=== PATIENT | female | born 1965 | race Caucasian/White ===

== ENCOUNTER 2018-03-18 23:51 | Emergency (ER) | payer SELFPAY ==
--- NOTE | 2018-03-19 00:42 | ERPHSYRPT ---
- History of Present Illness Time Seen by Provider: 03/19/18 00:31 Source: patient, EMS Exam Limitations: no limitations Patient Subjective Stated Complaint: Cough/hemoptysis Triage Nursing Assessment: Patient brought into ED per EMS and transferred to bed. Patient A+OX 3. Patient complains of cough producing thick green mucus then starting having hemoptysis. Patient has dx of cystic fibrosis. O2 93% on 3 liters per n/c. Lungs noted to be diminished thoughout. Physician History: The patient is a 52-year-old female with her brought in by ambulance from home where she had severe blood when she was coughing. She has a history of cystic fibrosis. Over the past 20 years she has had 3 or 4 episodes of hemoptysis. This episode was by far the worse one she has ever had. She is short of breath. She sees Dr. Lees in [place] and has hand thermal cutter at [facility] in [place]. She states that she has always been treated in [place] because of the significant antibiotic resistance that she has. Her past medical history is significant for cystic fibrosis, pancreatic cystic fibrosis induced diabetes, and hypothyroidism. Timing/Duration: today Cough Quality/Degree: severe, blood streaked sputum (antony blood) Possible Cause: occasional episodes, illness exposure Modifying Factors: Improves With: coughing Associated Symptoms: cough Allergies/Adverse Reactions: Penicillins Adverse Reaction (Verified 03/19/18 00:08) piperacillin [From Zosyn] Adverse Reaction (Verified 03/19/18 00:08) sulfamethoxazole [From Bactrim] Adverse Reaction (Verified 03/19/18 00:08) tazobactam [From Zosyn] Adverse Reaction (Verified 03/19/18 00:08) trimethoprim [From Bactrim] Adverse Reaction (Verified 03/19/18 00:08) Hx Influenza Vaccination/Date Given: Yes Hx Pneumococcal Vaccination/Date Given: Yes Immunizations Up to Date: Yes - Review of Systems Constitutional: No Fever, No Chills Eyes: No Symptoms Ears, Nose, & Throat: No Symptoms Respiratory: Cough, Dyspnea on Exertion (PRINCE) Cardiac: No Chest Pain, No Edema, No Syncope Abdominal/Gastrointestinal: No Abdominal Pain, No Nausea, No Vomiting, No Diarrhea Genitourinary Symptoms: No Dysuria Musculoskeletal: No Back Pain, No Neck Pain Skin: No Rash Neurological: No Dizziness, No Focal Weakness, No Sensory Changes Psychological: No Symptoms Endocrine: No Symptoms Hematologic/Lymphatic: No Symptoms Immunological/Allergic: No Symptoms All Other Systems: Reviewed and Negative - Past Medical History Pertinent Past Medical History: Yes Neurological History: No Pertinent History ENT History: No Pertinent History Cardiac History: No Pertinent History Respiratory History: Other Endocrine Medical History: Other Musculoskeletal History: No Pertinent History GI Medical History: No Pertinent History History: No Pertinent History Psycho-Social History: No Pertinent History Female Reproductive Disorders: No Pertinent History Other Medical History: Cystic Fibrosis since . Cystic Fibrosis related Diabetes for 20 years - Past Surgical History Past Surgical History: Yes Gastrointestinal: Cholecystectomy Genitourinary: No Pertinent History Musculoskeletal: No Pertinent History Female Surgical History: No Pertinent History Other Surgical History: Polp removed from large intestine 2014. Polp removed from sinus 1980s - Social History Smoking Status: Never smoker Exposure to second hand smoke: No Drug Use: none Patient Lives Alone: No - Female History Hx Last Menstrual Period: Menopausal Hx Now: No - Nursing Vital Signs Nursing Vital Signs: Initial Vital Signs Temperature 99.0 F 03/18/18 23:57 Pulse Rate 105 H 03/18/18 23:57 Respiratory Rate 18 03/18/18 23:57 Blood Pressure 124/82 03/18/18 23:57 O2 Sat by Pulse Oximetry 94 L 03/18/18 23:57 Pain Scale Pain Intensity 0 - Physical Exam General Appearance: no apparent distress, alert Eye Exam: PERRL/EOMI, eyes nml inspection Ears, Nose, Throat Exam: normal ENT inspection, TMs normal, pharynx normal, moist mucous membranes Neck Exam: normal inspection, non-tender, supple, full range of motion Respiratory Exam: rhonchi Cardiovascular Exam: regular rate/rhythm, normal heart sounds Gastrointestinal/Abdomen Exam: soft, No tenderness Pelvic Exam: not done Rectal Exam: not done Back Exam: normal inspection, No CVA tenderness, No vertebral tenderness Extremity Exam: normal inspection, normal range of motion Neurologic Exam: alert, oriented x 3, cooperative, normal mood/affect, sensation nml, No motor deficits Skin Exam: normal color, warm, dry, No rash Lymphatic Exam: No adenopathy SpO2 Interpretation: normal SpO2: 94 O2 Delivery: Nasal Cannula (2 L) - CT Exams Chest CT Interpretation: Tele-radiologist Report (per Dr Covington), Other (chronic changes of cystic fibrosis. no difinite acue pneumonia) Ordered Tests: Active Orders 24 hr Category Date Time Status IV Insertion STAT Care 03/19/18 00:45 Active Oxygen-ED Only Nasal Cannula 2 lpm Care 03/19/18 00:45 Active Pulse Oximetry (ED) STAT Care 03/19/18 00:45 Active CHEST WITHOUT CONTRAST [CT] Stat Exams 03/19/18 00:46 Taken BLOOD CULTURE Stat Lab 03/19/18 01:15 Received BMP Stat Lab 03/19/18 01:05 Completed CBC W DIFF Stat Lab 03/19/18 01:05 Completed Lactic Acid Stat Lab 03/19/18 01:19 Completed Medication Summary Generic Name Dose Route Start Last Admin Trade Name Freq PRN Reason Stop Dose Admin Sodium Chloride 1,000 mls @ 100 mls/hr 03/19/18 00:45 03/19/18 01:45 Sodium Chloride 0.9% 1000 Ml IV 04/18/18 00:44 100 mls/hr .Q10H GALEN Administration Lab/Rad Data: Laboratory Result Diagrams 03/19/18 01:05 03/19/18 01:05 Laboratory Results 03/19/18 03/19/18 03/19/18 Range/Units 01:19 01:15 01:05 WBC (4.0-10.5) K/mm3 RBC (4.1-5.4) M/mm3 Hgb (12.0-16.0) gm/dl Hct (35-47) % MCV (78-100) fl MCH (26-32) pg MCHC (32-36) g/dl RDW (11.5-14.0) % Plt Count (150-450) K/mm3 MPV (6-9.5) fl Gran % (36.0-66.0) % Eos # (Auto) (0-0.5) Absolute Lymphs (auto) (1.0-4.6) Absolute Monos (auto) (0.0-1.3) Lymphocytes % (24.0-44.0) % Monocytes % (0.0-12.0) % Eosinophils % (0.00-5.0) % Basophils % (0.0-0.4) % Absolute Granulocytes (1.4-6.9) Basophils # (0-0.4) Sodium 133 L (137-145) mmol/L Potassium 4.5 (3.5-5.1) mmol/L Chloride 93 L (98-107) mmol/L Carbon Dioxide 30 (22-30) mmol/L Anion Gap 13.7 (5-15) MEQ/L BUN 21 H (7-17) mg/dL Creatinine 0.81 (0.52-1.04) mg/dL Estimated GFR > 60.0 ML/MIN Glucose 396 H (74-106) mg/dL Lactic Acid 1.6 (0.4-2.0) Calcium 8.6 (8.4-10.2) mg/dL Influenza Type A Ag NEGATIVE (NEGATIVE) Influenza Type B Ag NEGATIVE (NEGATIVE) RSV (PCR) NEGATIVE (Negative) 03/19/18 Range/Units 01:05 WBC 9.3 (4.0-10.5) K/mm3 RBC 4.76 (4.1-5.4) M/mm3 Hgb 13.4 (12.0-16.0) gm/dl Hct 41.9 (35-47) % MCV 88.0 (78-100) fl MCH 28.2 (26-32) pg MCHC 32.0 (32-36) g/dl RDW 14.1 H (11.5-14.0) % Plt Count 270 (150-450) K/mm3 MPV 9.5 (6-9.5) fl Gran % 75.3 H (36.0-66.0) % Eos # (Auto) 0.10 (0-0.5) Absolute Lymphs (auto) 1.10 (1.0-4.6) Absolute Monos (auto) 1.04 (0.0-1.3) Lymphocytes % 11.9 L (24.0-44.0) % Monocytes % 11.2 (0.0-12.0) % Eosinophils % 1.1 (0.00-5.0) % Basophils % 0.5 (0.0-0.4) % Absolute Granulocytes 6.98 H (1.4-6.9) Basophils # 0.05 (0-0.4) Sodium (137-145) mmol/L Potassium (3.5-5.1) mmol/L Chloride (98-107) mmol/L Carbon Dioxide (22-30) mmol/L Anion Gap (5-15) MEQ/L BUN (7-17) mg/dL Creatinine (0.52-1.04) mg/dL Estimated GFR ML/MIN Glucose (74-106) mg/dL Lactic Acid (0.4-2.0) Calcium (8.4-10.2) mg/dL Influenza Type A Ag (NEGATIVE) Influenza Type B Ag (NEGATIVE) RSV (PCR) (Negative) - Progress Progress: improved Air Movement: fair Progress Note: 03/19/18 03:[address] Donohue the hand thermal cutter at [facility] in [place]. We will hold off on giving the patient antibiotics at this time. We will transfer the patient soon as a bed becomes available. We will send a sputum specimen with the patient. Blood Culture(s) Obtained: Yes Antibiotics given: No Discussed with Dr.: Other (Dr Donohue at [facility]) Counseled pt/family regarding: lab results, rad results - Departure Time of Disposition: 03:01 Departure Disposition: Transfer (Transfer to [facility] per Dr Donohue) Clinical Impression: Hemoptysis, Cystic fibrosis Condition: Stable Critical Care Time: No Referrals: RODRIGUEZ LEES [Primary Care Provider] -
[2018-03-19] MEDS ORDERED: Sodium Chloride 0.9% 1000 ML 1,000 ML IV SCH (00:45)
[2018-03-19] MEDS ORDERED: Sodium Chloride 0.9% 1000 ML 1,000 ML ONE (01:13)
[2018-03-19 01:25] LABS: BASOPHIL % 0.5 % (0.0-0.4); Basophil (Absolute #) 0.05 (0-0.4); Eosinophil % 1.1 % (0.00-5.0); Granulocytes % 75.3 % (36.0-66.0); Hematocrit 41.9 % (35-47); Hemoglobin 13.4 gm/dl (12.0-16.0); Lymphocytes % 11.9 % (24.0-44.0); Mean Corpuscular Hemoglobin 28.2 pg (26-32); Mean Platelet Volume 9.5 fl (6-9.5); Monocyte (Absolute #) 1.04 (0.0-1.3); Monocytes % 11.2 % (0.0-12.0); Platelet Count 270 K/mm3 (150-450); Red Blood Count 4.76 M/mm3 (4.1-5.4); Red Cell Distribution Width 14.1 % (11.5-14.0); White Blood Count 9.3 K/mm3 (4.0-10.5)
[2018-03-19 01:37] LABS: ANION GAP 13.7 MEQ/L (5-15); BLOOD UREA NITROGEN 21 mg/dL (7-17); CHLORIDE 93 mmol/L (98-107); Calcium 8.6 mg/dL (8.4-10.2); Carbon Dioxide 30 mmol/L (22-30); Creatinine 1 0.81 mg/dL (0.52-1.04); Glucose 396 mg/dL (74-106); Potassium 4.5 mmol/L (3.5-5.1); SODIUM 133 mmol/L (137-145)
[2018-03-19 02:12] LABS: INFLUENZA A NEGATIVE (NEGATIVE); INFLUENZA B NEGATIVE (NEGATIVE); RESPIRATORY SYNCTIAL VIRUS NEGATIVE (Negative)
[2018-03-19] MEDS ORDERED: PROVENTIL 2.5 MG/3 ML NEB IH ONE ×2 (03:15→03:20)
[2018-03-19 03:33] VITALS: BP 114/62
[2018-03-19 03:59] VITALS: PULSE 96; O2SAT 95
--- NOTE | 2018-03-19 09:37 | XRAY ---
Indication: Hemoptysis and dyspnea. Cystic fibrosis. Multiple contiguous axial images obtained through the chest without contrast as ordered. Comparison: None. Lungs inflated with CT findings consistent with patient's history of cystic fibrosis. Right upper lobe demonstrates asymmetric consolidation concerning for organizing airspace disease. Additional smaller patchy areas of airspace disease seen throughout both lungs. No effusion. Heart is not enlarged. Aorta is normal in course and caliber. A few mediastinal lymph nodes, largest subcarinal measuring 1.5 x 1.7 cm. Bony thorax intact with minimal degenerative changes throughout the spine. Limited upper abdomen demonstrates previous cholecystectomy. Impression: 1. Cystic fibrosis consistent with patient's history. 2. Scattered patchy bilateral airspace disease with asymmetric right upper lobe consolidation. Correlate clinically. 3. Mediastinal lymph nodes presumed reactive. Comment: Preliminary interpretation was made by [facility] [[email or web address]] who does not report airspace opacities including right upper lobe consolidation and subcarinal node. Telephone report given to Dr. Padron in the ER at 0924 hrs. on March 19, 2018. CTDI 7.36
== END 2018-03-19 05:01 | disposition short-term general hospital (02) ==
LOC: ED 23:51
DX: R04.2 Hemoptysis (principal); E84.9 Cystic fibrosis, unspecified; Z86.010 Personal history of colon polyps; E11.9 Type 2 diabetes mellitus without complications
CPT/HCPCS: 36415; 71250; 80048; 82962; 83605; 85025; 87040; 87077; 87631; 94150; 94640; 96360; 96361; 99285; J7609; A9270-GY

== ENCOUNTER 2018-06-19 22:21 | Emergency (ER) | payer BC ==
[2018-06-19] MEDS ORDERED: DUONEB 0.5-3 MG/3 ml Neb IH ONE ×2 (22:51→23:00)
[2018-06-19] MEDS ORDERED: TYLENOL 325 MG PO ONE (22:55)
[2018-06-19] MEDS ORDERED: LEVOFLOXACIN 750MG/150ML D5W 750 MG/150 ML BAG IV STA (22:55)
[2018-06-19] MEDS ORDERED: Zofran 4 MG/2 ML VIAL IV ONE (22:55)
[2018-06-19] MEDS ORDERED: Merrem 1 GM 1 G in Sodium Chloride 100ML MINI-BAG PLUS 100 ML IV STA (23:00)
[2018-06-19] MEDS ORDERED: Vancomycin 1GM/ Ns 250ML*** 1 GM/250 ML IVPB IV ONE (23:00)
[2018-06-19] MEDS ORDERED: Zofran 4 MG/2 ML VIAL ONE (23:02)
[2018-06-19] MEDS ORDERED: TYLENOL 325 MG ONE (23:02)
[2018-06-19] MEDS ORDERED: LEVOFLOXACIN 750MG/150ML D5W 750 MG/150 ML BAG IV ONE (23:03)
[2018-06-19] MEDS ORDERED: Merrem 1 GM IV ONE ×2 (23:11→23:12)
[2018-06-19] MEDS ORDERED: Sodium Chloride 0.9% 100 ML IVPB 100 ML IV ONE (23:12)
[2018-06-19 23:21] LABS: BASOPHIL % 0.8 % (0.0-0.4); Basophil (Absolute #) 0.06 (0-0.4); Eosinophil % 0.4 % (0.00-5.0); Eosinophil (Absolute #) 0.03 (0-0.5); Granulocyte Absolute (ANC) 5.73 (1.4-6.9); Granulocytes % 71.6 % (36.0-66.0); Hematocrit 41.5 % (35-47); Hemoglobin 13.3 gm/dl (12.0-16.0); Lymphocyte (Absolute #) 0.77 (1.0-4.6); Lymphocytes % 9.6 % (24.0-44.0); Mean Cell Volume 87.4 fl (78-100); Mean Platelet Volume 9.9 fl (6-9.5); Monocyte (Absolute #) 1.41 (0.0-1.3); Monocytes % 17.6 % (0.0-12.0); Platelet Count 271 K/mm3 (150-450); Red Blood Count 4.75 M/mm3 (4.1-5.4); Red Cell Distribution Width 14.2 % (11.5-14.0)
[2018-06-19 23:35] LABS: ALBUMIN 3.8 g/dL (3.5-5.0); ALKALINE PHOSPHATASE 111 U/L (38-126); ANION GAP 14.7 MEQ/L (5-15); BLOOD UREA NITROGEN 10 mg/dL (7-17); CHLORIDE 98 mmol/L (98-107); Calcium 8.9 mg/dL (8.4-10.2); Carbon Dioxide 26 mmol/L (22-30); Creatinine 1 0.65 mg/dL (0.52-1.04); Glucose 309 mg/dL (74-106); Potassium 4.3 mmol/L (3.5-5.1); SGOT/AST 26 U/L (14-36); SGPT/ALT 26 U/L (0-35); SODIUM 135 mmol/L (137-145); Total Protein 7.6 g/dL (6.3-8.2)
[2018-06-19] MEDS ORDERED: NovoLOG Insulin SQ ONE (23:41)
[2018-06-19 23:57] LABS: INFLUENZA A NEGATIVE (NEGATIVE); INFLUENZA B NEGATIVE (NEGATIVE); RESPIRATORY SYNCTIAL VIRUS NEGATIVE (Negative)
[2018-06-20] MEDS ORDERED: NovoLOG Insulin ONE (00:19)
[2018-06-20] MEDS ORDERED: DUONEB 0.5-3 MG/3 ml Neb IH ONE ×2 (00:39→00:44)
[2018-06-20 00:50] VITALS: O2SAT 93
[2018-06-20] MEDS ORDERED: Vancomycin 1GM/ Ns 250ML*** 250 ML IV ONE (01:15)
[2018-06-20 01:24] VITALS: BP 95/69; PULSE 105
--- NOTE | 2018-06-20 01:46 | ERPHSYRPT ---
- History of Present Illness Source: patient Exam Limitations: no limitations Patient Subjective Stated Complaint: pt is alert and oriented. pt is ambulatory with a steady gait. pt comes in with c/o fever, congestion, headache, and difficulty breathing since wednesday. pt has cystic fibrosis. pt denies coughing anything up. pt does have a productive cough producing green sputum. pt denies hemoptysis. pt lung sound are coarse and crackling bilat bases and middle. pt heart sounds regular. pt is 89% on RA. pt placed on 2L NC and is now up to 93%. pt denies belly pain. bowel sounds normoactive x4. pt placed on neutropenic precautions. Triage Nursing Assessment: see above Physician History: Pt is a 52 y/o female with a h/o CF that presented to the ED with cough, SOB, dyspnea, and fever. Pt states, the fever and cough started on Wednesday and escalated fast. Pt states, she is taking her meds as ordered, and her nebs, but she did get worse, fast and could not breath. Pt has cough with green sputum that is slmost solid. She is febrile, and having chills, and sweats. No chest pain or palpitations. She is getting nauseated, with sever cough spells. No abdominal pain vomiting or diarrhea. Activities at Onset: none Severity of Dyspnea-Max: severe Severity of Dyspnea-Current: severe Possible Cause: frequent episodes Modifying Factors: Improves With: nothing Associated Symptoms: cough, fever, wheezing, heart racing, painful breathing, productive cough, sweating Allergies/Adverse Reactions: Penicillins Adverse Reaction (Verified 03/19/18 00:08) piperacillin [From Zosyn] Adverse Reaction (Verified 03/19/18 00:08) sulfamethoxazole [From Bactrim] Adverse Reaction (Verified 03/19/18 00:08) tazobactam [From Zosyn] Adverse Reaction (Verified 03/19/18 00:08) trimethoprim [From Bactrim] Adverse Reaction (Verified 03/19/18 00:08) Home Medications: Albuterol 2.5 mg/3 ml Neb [Proventil 2.5 mg/3 ml Neb] 1 vial IH TID [History] Albuterol Sulfate [Albuterol Sulfate Hfa] 8.5 gm IH Q4HPRN PRN 03/19/18 [History ] Atorvastatin Calcium 10 mg PO HS 03/19/18 [History] Azithromycin 500 mg PO WEEKLY 03/19/18 [History] Escitalopram Oxalate [Lexapro] 20 mg PO DAILY 03/19/18 [History] Fluticasone/Salmeterol 500/50* [Advair 500-50 Diskus] 2 sprays IH DAILY 03/19 [History] Insulin Aspart [NovoLOG Insulin] 12 unit SQ AC 03/19/18 [History] Insulin Glargine [Lantus Insulin] 16 units SQ DAILY 03/19/18 [History] Levothyroxine Sodium 50 Mcg [Synthroid 50 Mcg] 1 tab PO DAILY PRN [History] Lipase/Protease/Amylase [Zenpep Dr 20,000 Units Capsule] 2 each PO AC 03/19/18 [ History] Omeprazole 20 mg PO DAILY 03/19/18 [History] Hx Tetanus, Diphtheria Vaccination/Date Given: Yes Hx Influenza Vaccination/Date Given: Yes Hx Pneumococcal Vaccination/Date Given: Yes Immunizations Up to Date: Yes - Review of Systems Constitutional: Fever, Chills, Malaise Eyes: No Symptoms Ears, Nose, & Throat: No Symptoms Respiratory: Cough, Dyspnea, Dyspnea on Exertion (PRINCE), Wheezing Cardiac: No Chest Pain, No Edema, No Syncope Abdominal/Gastrointestinal: No Abdominal Pain, No Nausea, No Vomiting, No Diarrhea Genitourinary Symptoms: No Dysuria Musculoskeletal: No Back Pain, No Neck Pain Neurological: No Dizziness, No Focal Weakness, No Sensory Changes Psychological: No Symptoms - Past Medical History Pertinent Past Medical History: Yes Neurological History: No Pertinent History ENT History: No Pertinent History Cardiac History: No Pertinent History, High Cholesterol Respiratory History: Other Endocrine Medical History: Diabetes Type II, Hypoglycemia Musculoskeletal History: Arthritis GI Medical History: No Pertinent History History: No Pertinent History Psycho-Social History: No Pertinent History Female Reproductive Disorders: No Pertinent History Other Medical History: Cystic Fibrosis since . Cystic Fibrosis related Diabetes for 20 years - Past Surgical History Past Surgical History: Yes Neuro Surgical History: No Pertinent History Cardiac: No Pertinent History Respiratory: No Pertinent History Gastrointestinal: Cholecystectomy Genitourinary: No Pertinent History Musculoskeletal: No Pertinent History Female Surgical History: No Pertinent History Other Surgical History: Polp removed from large intestine 2014. Polp removed from sinus 1980s - Social History Smoking Status: Never smoker Exposure to second hand smoke: No Drug Use: none Patient Lives Alone: No - Female History Hx Now: No - Nursing Vital Signs Nursing Vital Signs: Initial Vital Signs Temperature 102.4 F 06/19/18 22:27 Pulse Rate 125 H 06/19/18 22:27 Respiratory Rate 20 06/19/18 22:27 Blood Pressure 137/79 06/19/18 22:27 O2 Sat by Pulse Oximetry 91 L 06/19/18 22:27 Pain Scale Pain Intensity 6 - Physical Exam General Appearance: severe distress Eye Exam: PERRL/EOMI Neck Exam: normal inspection, supple Respiratory Exam: respiratory distress, accessory muscle use, prolonged expirations, wheezing Cardiovascular/Chest Exam: normal heart sounds, tachycardia Abdominal/Gastrointestinal Exam: soft, No tenderness, No distention, No mass Extremity Exam: non-tender, normal range of motion, normal inspection, no calf tenderness, no pedal edema, No calf tenderness Neurologic Exam: alert, oriented x 3, cooperative, project management it specialist II-XII nml as tested, sensation nml, No motor deficits Skin Exam: normal color, warm, No dry SpO2 Interpretation: hypoxic SpO2: 93 - Radiology Exams Chest X-ray Interpretation: Interpreted by me (PAYAL PNA) Ordered Tests: Active Orders 24 hr Category Date Time Status Oxygen-ED Only Nasal Cannula 2 lpm Care 06/19/18 22:55 Active CHEST 1 VIEW (PORTABLE) Stat Exams 06/19/18 23:24 Taken ARTERIAL BLOOD GASES Stat Lab 06/19/18 23:15 Completed BLOOD CULTURE Stat Lab 06/19/18 23:17 Received CBC W DIFF Stat Lab 06/19/18 23:17 Completed CMP Stat Lab 06/19/18 23:17 Completed CULTURE,SPUTUM Stat Lab 06/19/18 23:39 Received CULTURE,URINE Stat Lab 06/19/18 22:58 Uncollected Lactic Acid Stat Lab 06/19/18 23:15 Completed Peak Expiratory Flow Rate ONCE RT 06/19/18 23:13 Active Respiratory Nebulizer STAT RT 06/19/18 22:51 Completed Respiratory Nebulizer STAT RT 06/20/18 00:39 Completed Respiratory Therapy Assessment DAILY RT 06/19/18 23:13 Active Medication Summary Discontinued Medications Generic Name Dose Route Start Last Admin Trade Name Freq PRN Reason Stop Dose Admin Acetaminophen 975 mg 06/19/18 22:55 06/19/18 23:04 Tylenol 325 Mg PO 06/19/18 22:56 975 mg STAT ONE Administration Acetaminophen Confirm 06/19/18 23:02 Tylenol 325 Mg Administered 06/19/18 23:03 Dose 975 mg .ROUTE .STK-MED ONE Albuterol/Ipratropium 3 ml 06/19/18 22:51 06/19/18 23:05 Duoneb 0.5-3 Mg/3 Ml Neb IH 06/19/18 22:52 3 ml STAT ONE Administration Albuterol/Ipratropium Confirm 06/19/18 23:00 Duoneb 0.5-3 Mg/3 Ml Neb Administered 06/19/18 23:01 Dose 3 ml IH .STK-MED ONE Albuterol/Ipratropium 3 ml 06/20/18 00:39 06/20/18 00:45 Duoneb 0.5-3 Mg/3 Ml Neb IH 06/20/18 00:40 3 ml STAT ONE Administration Albuterol/Ipratropium Confirm 06/20/18 00:44 Duoneb 0.5-3 Mg/3 Ml Neb Administered 06/20/18 00:45 Dose 3 ml IH .STK-MED ONE Levofloxacin/Dextrose 750 mg in 150 mls @ 100 mls/hr 06/19/18 22:55 06/20/18 01:27 Levofloxacin 750mg/150ml D5w IV 06/20/18 00:24 Infused STAT STA Infusion Meropenem 1 g/ Sodium Chloride 100 mls @ 200 mls/hr 06/19/18 23:00 06/20/18 00:00 IV 06/19/18 23:29 Infused STAT STA Infusion Vancomycin HCl 1 gm in 250 mls @ 167 mls/hr 06/19/18 23:00 06/20/18 01:27 Vancomycin 1gm/ Ns 250ml IV 06/20/18 00:29 167 mls/hr STAT ONE Administration Levofloxacin/Dextrose Confirm 06/19/18 23:03 Levofloxacin 750mg/150ml D5w Administered 06/19/18 23:04 Dose 750 mg in 150 mls @ ud IV .STK-MED ONE Sodium Chloride Confirm 06/19/18 23:12 Sodium Chloride 0.9% 100 Ml Ivpb Administered 06/19/18 23:13 Dose 100 mls @ ud IV .STK-MED ONE Vancomycin HCl Confirm 06/20/18 01:15 Vancomycin 1gm/ Ns 250ml Administered 06/20/18 01:16 Dose 250 mls @ ud IV .STK-MED ONE Insulin Aspart 8 unit 06/19/18 23:41 06/20/18 00:30 Novolog Insulin SQ 06/19/18 23:42 8 unit STAT ONE Administration Insulin Aspart Confirm 06/20/18 00:19 Novolog Insulin Administered 06/20/18 00:20 Dose 8 unit .ROUTE .STK-MED ONE Meropenem Confirm 06/19/18 23:11 Merrem 1 Gm Administered 06/19/18 23:12 Dose 1 g IV .STK-MED ONE Meropenem Confirm 06/19/18 23:12 Merrem 1 Gm Administered 06/19/18 23:13 Dose 1 g IV .STK-MED ONE Ondansetron HCl 4 mg 06/19/18 22:55 06/19/18 23:05 Zofran 4 Mg/2 Ml Vial IV 06/19/18 22:56 4 mg STAT ONE Administration Ondansetron HCl Confirm 06/19/18 23:02 Zofran 4 Mg/2 Ml Vial Administered 06/19/18 23:03 Dose 4 mg .ROUTE .STK-MED ONE Lab/Rad Data: Laboratory Result Diagrams 06/19/18 23:17 06/19/18 23:17 Laboratory Results 06/19/18 06/19/18 06/19/18 Range/Units 23:17 23:17 23:17 WBC 8.0 (4.0-10.5) K/mm3 RBC 4.75 (4.1-5.4) M/mm3 Hgb 13.3 (12.0-16.0) gm/dl Hct 41.5 (35-47) % MCV 87.4 (78-100) fl MCH 28.0 (26-32) pg MCHC 32.0 (32-36) g/dl RDW 14.2 H (11.5-14.0) % Plt Count 271 (150-450) K/mm3 MPV 9.9 H (6-9.5) fl Gran % 71.6 H (36.0-66.0) % Eos # (Auto) 0.03 (0-0.5) Absolute Lymphs (auto) 0.77 L (1.0-4.6) Absolute Monos (auto) 1.41 H (0.0-1.3) Lymphocytes % 9.6 L (24.0-44.0) % Monocytes % 17.6 H (0.0-12.0) % Eosinophils % 0.4 (0.00-5.0) % Basophils % 0.8 (0.0-0.4) % Absolute Granulocytes 5.73 (1.4-6.9) Basophils # 0.06 (0-0.4) Puncture Site pCO2 (35-45) mmHg pO2 (75-100) mmHg Base Excess (-2.0-2.0) O2 Saturation (94-100) g/dF ABG pH (7.35-7.45) ABG HCO3 (22-28) ABG O2 Sat (Measured) (95-100) % Cristo Test Hemoglobin Carboxyhemoglobin (0.0-6.9) % THgb Methemoglobin (1.4-1.5) % Potassium 4.3 (3.5-5.1) Temperature C POC O2 Flow Rate % Sodium 135 L (137-145) mmol/L Chloride 98 (98-107) mmol/L Carbon Dioxide 26 (22-30) mmol/L Anion Gap 14.7 (5-15) MEQ/L BUN 10 (7-17) mg/dL Creatinine 0.65 (0.52-1.04) mg/dL Estimated GFR > 60.0 ML/MIN Glucose 309 H (74-106) mg/dL Lactic Acid (0.4-2.0) Calcium 8.9 (8.4-10.2) mg/dL Total Bilirubin 0.50 (0.2-1.3) mg/dL AST 26 (14-36) U/L ALT 26 (0-35) U/L Alkaline Phosphatase 111 (38-126) U/L Serum Total Protein 7.6 (6.3-8.2) g/dL Albumin 3.8 (3.5-5.0) g/dL Influenza Type A Ag NEGATIVE (NEGATIVE) Influenza Type B Ag NEGATIVE (NEGATIVE) RSV (PCR) NEGATIVE (Negative) 06/19/18 Range/Units 23:15 WBC (4.0-10.5) K/mm3 RBC (4.1-5.4) M/mm3 Hgb (12.0-16.0) gm/dl Hct (35-47) % MCV (78-100) fl MCH (26-32) pg MCHC (32-36) g/dl RDW (11.5-14.0) % Plt Count (150-450) K/mm3 MPV (6-9.5) fl Gran % (36.0-66.0) % Eos # (Auto) (0-0.5) Absolute Lymphs (auto) (1.0-4.6) Absolute Monos (auto) (0.0-1.3) Lymphocytes % (24.0-44.0) % Monocytes % (0.0-12.0) % Eosinophils % (0.00-5.0) % Basophils % (0.0-0.4) % Absolute Granulocytes (1.4-6.9) Basophils # (0-0.4) Puncture Site NA pCO2 41 (35-45) mmHg pO2 38 L* (75-100) mmHg Base Excess 2.6 H (-2.0-2.0) O2 Saturation 79.3 L (94-100) g/dF ABG pH 7.43 (7.35-7.45) ABG HCO3 27.2 (22-28) ABG O2 Sat (Measured) 80.9 L (95-100) % Cristo Test NOT APPLICABLE Hemoglobin 14.2 Carboxyhemoglobin 1.6 (0.0-6.9) % THgb Methemoglobin 0.3 L (1.4-1.5) % Potassium 4.4 (3.5-5.1) Temperature 37.0 C POC O2 Flow Rate 28 % Sodium (137-145) mmol/L Chloride (98-107) mmol/L Carbon Dioxide (22-30) mmol/L Anion Gap (5-15) MEQ/L BUN (7-17) mg/dL Creatinine (0.52-1.04) mg/dL Estimated GFR ML/MIN Glucose (74-106) mg/dL Lactic Acid 2.0 (0.4-2.0) Calcium (8.4-10.2) mg/dL Total Bilirubin (0.2-1.3) mg/dL AST (14-36) U/L ALT (0-35) U/L Alkaline Phosphatase (38-126) U/L Serum Total Protein (6.3-8.2) g/dL Albumin (3.5-5.0) g/dL Influenza Type A Ag (NEGATIVE) Influenza Type B Ag (NEGATIVE) RSV (PCR) (Negative) - Progress Progress: unchanged Air Movement: poor Progress Note: 06/20/18 01:48 Pt had blood cultures and UA, and sputum cultures done. She was given Levaquin , Meopenem and Vancomycin IV. Nebs were given x2. transfer center was contacted and Dr Gorman accepted pt to PCU. Secondary to bed problem in [facility], the ER in [facility] was contacted and Dr Delarosa accepted pt to the ED in [place], and they will care for her, until bed will open in [place]. As lifeline, was not brandyn, and could not machine operator picker pt in the next 4 hours, Pt was transfered with out service. Blood Culture(s) Obtained: Yes Antibiotics given: Yes Will see patient in: other (Transfer to ED [place]) - Departure Departure Disposition: Transfer Clinical Impression: Hospital acquired PNA Condition: Serious Critical Care Time: No Referrals: RODRIGUEZ LEES [Primary Care Provider] -
--- NOTE | 2018-06-20 08:51 | XRAY ---
Indication: Short of breath. History cystic fibrosis. Comparison: None Portable chest hyperinflated with diffuse bilateral interstitial opacities and bronchiectasis greater in the upper lobes favoring known cystic fibrosis. No focal infiltrate, consolidation, or large effusion. Heart and mediastinal structures within normal limits. Bony thorax intact. Impression: Radiographic features favoring cystic fibrosis with superimposed pneumonia not completely excluded. Comparison studies would be of benefit.
== END 2018-06-20 01:38 | disposition short-term general hospital (02) ==
LOC: ED 22:21
DX: J18.9 Pneumonia, unspecified organism (principal); E78.00 Pure hypercholesterolemia, unspecified; E11.9 Type 2 diabetes mellitus without complications
CPT/HCPCS: 36415; 36600; 71045; 80053; 82375; 82803; 83605; 85025; 87040; 87070; 87077; 87186; 87631; 94150; 94640; 96365; 96367; 96372; 96374; 99285; J1956; J2405; J3370; A9270-GY

== ENCOUNTER 2018-11-10 20:32 | Emergency (ER) | payer BC ==
--- NOTE | 2018-11-10 21:01 | ERPHSYRPT ---
- History of Present Illness Time Seen by Provider: 11/10/18 20:45 Source: patient Exam Limitations: no limitations Patient Subjective Stated Complaint: pt states she has cf and coughed up approx 2 oz of blood prior to arrival. states she has been increasingluy short of breath since and her o2 sats on room air dropped from mid 90's to 89. Triage Nursing Assessment: pt alert and oriented, answers questions approp. pt back per wheelchair and transfers to stretcher per self, steady gait noted. pt short of breath with exertion. Physician History: Increased cough, dyspnea and production over the past two days after beginning with sore throat and upper respiratory symptoms. Patient had increased hemoptysis tonight. Timing/Duration: day(s) (2), worse (this evening) Cough Quality/Degree: moderate, blood streaked sputum Possible Cause: occasional episodes Modifying Factors: Improves With: coughing (makes it worse) Associated Symptoms: cough, nasal congestion, nasal drainage, shortness of breath, sore throat, No fever, No chills, No chest pain/soreness, No dizziness, No earache, No facial pain, No headache, No lightheadedness International travel in last 2 weeks: No Allergies/Adverse Reactions: Penicillins Adverse Reaction (Verified 11/10/18 21:04) piperacillin [From Zosyn] Adverse Reaction (Verified 11/10/18 21:04) sulfamethoxazole [From Bactrim] Adverse Reaction (Verified 11/10/18 21:04) tazobactam [From Zosyn] Adverse Reaction (Verified 11/10/18 21:04) trimethoprim [From Bactrim] Adverse Reaction (Verified 11/10/18 21:04) Home Medications: Albuterol 2.5 mg/3 ml Neb [Proventil 2.5 mg/3 ml Neb] 1 vial IH TID [History] Albuterol Sulfate [Albuterol Sulfate Hfa] 8.5 gm IH Q4HPRN PRN 03/19/18 [History ] Atorvastatin Calcium 10 mg PO HS 03/19/18 [History] Azithromycin 500 mg PO UD 03/19/18 [History] Escitalopram Oxalate [Lexapro] 20 mg PO DAILY 03/19/18 [History] Fluticasone/Salmeterol 500/50* [Advair 500-50 Diskus] 1 sprays IH BID [History] Insulin Aspart [NovoLOG Insulin] 12 unit SQ AC 03/19/18 [History] Insulin Glargine [Lantus Insulin] 13 units SQ DAILY 03/19/18 [History] Levothyroxine Sodium 50 Mcg [Synthroid 50 Mcg] 1 tab PO DAILY 03/19/18 [ History] Lipase/Protease/Amylase [Zenpep Dr 20,000 Units Capsule] 2 each PO AC 03/19/18 [ History] Omeprazole 20 mg PO DAILY 03/19/18 [History] Hx Tetanus, Diphtheria Vaccination/Date Given: Yes Hx Influenza Vaccination/Date Given: No Hx Pneumococcal Vaccination/Date Given: Yes Immunizations Up to Date: Yes - Review of Systems Constitutional: No Fever, No Chills Eyes: No Symptoms, No Eye Pain, No Vision Changes Ears, Nose, & Throat: No Symptoms Respiratory: Cough, Dyspnea, Other (hemoptysis) Cardiac: No Chest Pain, No Edema, No Syncope Abdominal/Gastrointestinal: No Abdominal Pain, No Nausea, No Vomiting, No Diarrhea, No Hematemesis, No Hematochezia, No Melena Genitourinary Symptoms: No Dysuria Musculoskeletal: No Back Pain, No Neck Pain Skin: No Rash Neurological: No Dizziness, No Focal Weakness, No Parasthesia, No Sensory Changes, No Tremors Psychological: No Symptoms Endocrine: No Symptoms Hematologic/Lymphatic: No Easy Bleeding, No Easy Bruising All Other Systems: Reviewed and Negative - Past Medical History Pertinent Past Medical History: Yes Neurological History: No Pertinent History ENT History: No Pertinent History Cardiac History: No Pertinent History, High Cholesterol Respiratory History: Other Endocrine Medical History: Diabetes Type II, Hypothyroidism Musculoskeletal History: Arthritis GI Medical History: No Pertinent History History: No Pertinent History Psycho-Social History: No Pertinent History Female Reproductive Disorders: No Pertinent History Other Medical History: Cystic Fibrosis since . Cystic Fibrosis related Diabetes for 20 years - Past Surgical History Past Surgical History: Yes Neuro Surgical History: No Pertinent History Cardiac: No Pertinent History Respiratory: No Pertinent History Gastrointestinal: Cholecystectomy Genitourinary: No Pertinent History Musculoskeletal: No Pertinent History Female Surgical History: No Pertinent History Other Surgical History: Polyp removed from large intestine 2014. Polyp removed from sinus 1980s - Social History Smoking Status: Never smoker Exposure to second hand smoke: No Drug Use: none Patient Lives Alone: No - Female History Hx Last Menstrual Period: post - Nursing Vital Signs Nursing Vital Signs: Initial Vital Signs Temperature 100.1 F 11/10/18 20:42 Pulse Rate 100 H 11/10/18 20:42 Respiratory Rate 22 11/10/18 20:42 Blood Pressure 139/81 11/10/18 20:42 O2 Sat by Pulse Oximetry 97 11/10/18 20:42 Pain Scale Pain Intensity 0 - Physical Exam General Appearance: no apparent distress, alert Eye Exam: PERRL/EOMI, eyes nml inspection Ears, Nose, Throat Exam: normal ENT inspection, TMs normal, pharynx normal, moist mucous membranes Neck Exam: normal inspection, non-tender, supple, full range of motion Respiratory Exam: airway intact, No respiratory distress Cardiovascular Exam: regular rate/rhythm, normal heart sounds, normal peripheral pulses Gastrointestinal/Abdomen Exam: soft, No tenderness Back Exam: normal inspection, No CVA tenderness, No vertebral tenderness Extremity Exam: normal inspection, normal range of motion Neurologic Exam: alert, oriented x 3, cooperative, clinical psychology teacher II-XII nml as tested, normal mood/affect, sensation nml, No motor deficits Skin Exam: normal color, warm, dry, No rash Lymphatic Exam: No adenopathy SpO2 Interpretation: borderline oxygenation, O2 applied SpO2: 97 (improved after nasal cannula) O2 Delivery: Nasal Cannula - Course Nursing assessment & vital signs reviewed: Yes Ordered Tests: Active Orders 24 hr Category Date Time Status Respiratory Therapy Assessment DAILY RT 11/10/18 22:04 Completed Medication Summary Discontinued Medications Generic Name Dose Route Start Last Admin Trade Name Twyla PRN Reason Stop Dose Admin Sodium Chloride 3 ml 11/10/18 21:53 11/10/18 22:07 Sodium Chloride 3 Ml Ud Nebules IH 11/10/18 21:54 3 ml ONCE ONE Administration Sodium Chloride Confirm 11/10/18 22:03 Sodium Chloride 3 Ml Ud Nebules Administered 11/10/18 22:04 Dose 3 ml IH .STK-MED ONE - Progress Progress: improved (after 2 liters oxygen) Air Movement: good Progress Note: 11/10/18 20:55 [facility] in [place], [place] called. They will call back with patient' s line therapist 11/10/18 21:[address] Roberth Smart, [employer] at [facility] in [place], [place]. Dr Smart accepted the patient for transfer and admission on behalf of Dr Tamia Lynch. Dr Smart recommended Saline Nebs and Pulmozyme if we have it. Dr Smart states nothing else needs to be done at this time as they will do further work-up at the hospital. 11/10/18 22:28 Patient felt better after the Saline nebulizer treatment 11/10/18 22:33 transfer center states no beds are available this evening. Patient can be transferred to [facility], [facility], in [place], [place] for admission until a bed opens up. 11/10/18 22:[address] Doss, ED attending at [facility] in [place], [place]. Dr Doss accepted the patient for transfer to [facility] emergency department. Blood Culture(s) Obtained: No Antibiotics given: No Discussed with Dr.: Other (spoke with Dr Roberth Smart, [employer]ator at [facility] in [place], [place]. Dr Smart accepted the patient for admission) Will see patient in: hospital (full admit) Counseled pt/family regarding: diagnosis, need for follow-up - Departure Departure Disposition: Transfer ([facility] in [place], [place]) Clinical Impression: Hemoptysis, Cystic fibrosis, Elevated blood pressure reading without diagnosis of hypertension Condition: Fair Critical Care Time: No Referrals: RODRIGUEZ LEES [Primary Care Provider] -
[2018-11-10] MEDS ORDERED: Sodium Chloride 3 ML UD NEBULES IH ONE ×2 (21:53→22:03)
[2018-11-10] MEDS ORDERED: TYLENOL EXTRA STRENGTH 500 MG PO STA (22:45)
[2018-11-10] MEDS ORDERED: TYLENOL EXTRA STRENGTH 500 MG ONE (22:56)
[2018-11-11 02:54] VITALS: BP 124/63; PULSE 71; O2SAT 96
== END 2018-11-11 02:30 | disposition short-term general hospital (02) ==
LOC: ED 20:32
DX: R04.2 Hemoptysis (principal); E84.9 Cystic fibrosis, unspecified; R03.0 Elevated blood-pressure reading, without diagnosis of hypertension
CPT/HCPCS: 99284; A9270-GY

== ENCOUNTER 2019-02-04 01:22 | Emergency (ER) | payer BC ==
--- NOTE | 2019-02-04 01:30 | ERPHSYRPT ---
- History of Present Illness Source: patient Exam Limitations: no limitations Occurred: yesterday Method of Injury: other (no injury) Quality: other (swollen ruext) Severity of Pain-Max: none Severity of Pain-Current: none Extremities Pain Location: arm: right Modifying Factors: Improves With: nothing Associated Symptoms: none Hx Tetanus, Diphtheria Vaccination/Date Given: Yes Hx Influenza Vaccination/Date Given: No Hx Pneumococcal Vaccination/Date Given: Yes <IGNACIO MESA - Last Filed: 02/04/19 06:50> <JAMES MONTEMAYOR - Last Filed: 02/04/19 08:56> - History of Present Illness Time Seen by Provider: 02/04/19 01:29 Physician History: 53 y/o white female, with h/o cystic fibrosis, presents with right arm swelling she noticed yesterday. pt also had an episode of hemoptysis. she has had this in the past. pts soa is no different than usual. pt had a right subclavian v subq port placed one month ago. pt states it is flushed with heparin after use. pt denies cp. (IGNACIO MESA) Allergies/Adverse Reactions: polymyxin B Allergy (Verified 02/04/19 01:43) Penicillins Adverse Reaction (Verified 11/10/18 21:04) piperacillin [From Zosyn] Adverse Reaction (Verified 11/10/18 21:04) sulfamethoxazole [From Bactrim] Adverse Reaction (Verified 11/10/18 21:04) tazobactam [From Zosyn] Adverse Reaction (Verified 11/10/18 21:04) trimethoprim [From Bactrim] Adverse Reaction (Verified 11/10/18 21:04) Home Medications: Albuterol 2.5 mg/3 ml Neb [Proventil 2.5 mg/3 ml Neb] 1 vial IH TID [History] Albuterol Sulfate [Albuterol Sulfate Hfa] 8.5 gm IH Q4HPRN PRN 03/19/18 [History ] Atorvastatin Calcium 10 mg PO HS 03/19/18 [History] Azithromycin 500 mg PO UD 03/19/18 [History] Escitalopram Oxalate [Lexapro] 20 mg PO DAILY 03/19/18 [History] Fluticasone/Salmeterol 500/50* [Advair 500-50 Diskus] 1 sprays IH BID [History] Insulin Aspart [NovoLOG Insulin] 12 unit SQ AC 03/19/18 [History] Insulin Glargine [Lantus Insulin] 13 units SQ DAILY 03/19/18 [History] Levothyroxine Sodium 50 Mcg [Synthroid 50 Mcg] 1 tab PO DAILY 03/19/18 [ History] Lipase/Protease/Amylase [Zenpep Dr 20,000 Units Capsule] 2 each PO AC 03/19/18 [ History] Omeprazole 20 mg PO DAILY 03/19/18 [History] - Review of Systems Constitutional: No Symptoms Eyes: No Symptoms Ears, Nose, & Throat: No Symptoms Respiratory: No Symptoms Cardiac: No Symptoms Abdominal/Gastrointestinal: No Symptoms Genitourinary Symptoms: No Symptoms Musculoskeletal: Other (right upper ext swelling) Skin: No Symptoms Neurological: No Symptoms Psychological: No Symptoms Endocrine: No Symptoms Hematologic/Lymphatic: No Symptoms Immunological/Allergic: No Symptoms All Other Systems: Reviewed and Negative <IGNACIO MESA - Last Filed: 02/04/19 06:50> - Past Medical History Pertinent Past Medical History: Yes Neurological History: No Pertinent History ENT History: No Pertinent History Cardiac History: No Pertinent History, High Cholesterol Respiratory History: Other Endocrine Medical History: Diabetes Type II, Hypothyroidism Musculoskeletal History: Arthritis GI Medical History: No Pertinent History History: No Pertinent History Psycho-Social History: No Pertinent History Female Reproductive Disorders: No Pertinent History Other Medical History: Cystic Fibrosis since . Cystic Fibrosis related Diabetes for 20 years - Past Surgical History Past Surgical History: Yes Neuro Surgical History: No Pertinent History Cardiac: No Pertinent History Respiratory: No Pertinent History Gastrointestinal: Cholecystectomy Genitourinary: No Pertinent History Musculoskeletal: No Pertinent History Female Surgical History: No Pertinent History Other Surgical History: Polyp removed from large intestine 2014. Polyp removed from sinus 1980s - Social History Smoking Status: Never smoker Exposure to second hand smoke: No Drug Use: none Patient Lives Alone: No <IGNACIO MESA - Last Filed: 02/04/19 06:50> - Physical Exam General Appearance: no apparent distress, alert, anxiety Eyes, Ears, Nose, Throat Exam: normal ENT inspection, moist mucous membranes Neck Exam: normal inspection, non-tender, supple, full range of motion Cardiovascular/Respiratory Exam: chest non-tender, normal breath sounds, regular rate/rhythm, heart sounds normal, no respiratory distress Abdominal Exam: non-tender, soft Back Exam: normal inspection, normal range of motion, No CVA tenderness, No vertebral tenderness Shoulder Exam: non-tender, no evidence of injury, normal ROM, swelling (mild upper arm ), No pain, No soft tissue tenderness Elbow/Forearm Exam: non-tender, no evidence of injury, normal ROM, swelling ( mild) Wrist Exam: non-tender, no evidence of injury, normal ROM, swelling (mild) Hand Exam: non-tender, no evidence of injury, normal ROM, swelling (mild ) Neuro/Tendon Exam: normal sensation, normal motor functions, normal tendon functions Mental Status Exam: alert, oriented x 3, cooperative Skin Exam: other (see above. right chest wall port site without evidenc of infection) SpO2 Interpretation: normal O2 Delivery: Room Air <IGNACIO MESA - Last Filed: 02/04/19 06:50> - Nursing Vital Signs Nursing Vital Signs: Initial Vital Signs Temperature 98.8 F 02/04/19 01:29 Pulse Rate 86 02/04/19 01:29 Respiratory Rate 18 02/04/19 01:29 Pain Scale Pain Intensity 2 - Course Nursing assessment & vital signs reviewed: Yes <IGNACIO MESA - Last Filed: 02/04/19 06:50> - Radiology Ultrasound Exam Venous Upper Extremity Ultrasound: tele radiology report (no upper extrimity DVT, reduce flow to vein) <JAMES MONTEMAYOR - Last Filed: 02/04/19 08:56> Ordered Tests: Active Orders 24 hr Category Date Time Status IV Insertion STAT Care 02/04/19 02:40 Active Pulse Oximetry (ED) STAT Care 02/04/19 02:40 Active CHEST WITH CONTRAST [CT] Urgent Exams 02/04/19 03:21 Completed VENOUS UNILAT/LIMITED EXTREMIT [US] Stat Exams 02/04/19 05:23 Taken BMP Stat Lab 02/04/19 03:02 Completed D-DIMER QUANTITATION Stat Lab 02/04/19 03:02 Completed Lab/Rad Data: Laboratory Result Diagrams 02/04/19 03:02 Laboratory Results 02/04/19 02/04/19 Range/Units 03:02 03:02 D-Dimer 656 H* (215-500) ng/mL Sodium 141 (137-145) mmol/L Potassium 3.5 (3.5-5.1) mmol/L Chloride 104 (98-107) mmol/L Carbon Dioxide 30 (22-30) mmol/L Anion Gap 10.7 (5-15) MEQ/L BUN 18 H (7-17) mg/dL Creatinine 0.53 (0.52-1.04) mg/dL Estimated GFR > 60.0 ML/MIN Glucose 150 H (74-106) mg/dL Calcium 9.2 (8.4-10.2) mg/dL - Progress Progress: improved, re-examined Counseled pt/family regarding: lab results, diagnosis, need for follow-up, rad results <IGNACIO MESA - Last Filed: 02/04/19 06:50> <JAMES MONTEMAYOR - Last Filed: 02/04/19 08:56> - Progress Progress Note: 02/04/19 05:26 cta chest-negative for pulm emboli 02/04/19 06:50 venous doppler right upper ext-negative for dvt per u/s tech. however, she states to wait for final read by radiologist. transfer care to dr. montemayor. he is to check on final venous doppler report by radiologist. if negative pt may be discharged. if positive, disposition and mangement per dr. montemayor. (IGNACIO MESA) <IGNACIO MESA - Last Filed: 02/04/19 06:50> - Departure Departure Disposition: Home Critical Care Time: No <JAMES MONTEMAYOR - Last Filed: 02/04/19 08:56> - Departure Clinical Impression: Swelling of right upper extremity, Cystic fibrosis Condition: Stable Referrals: RODRIGUEZ LEES [Primary Care Provider] - Additional Instructions: Discharge/Care Plan MELLO EDOUARD was seen on 02/04/19 in the Emergency Room. The patient was counseled regarding Diagnosis,Lab results, Imaging studies, need for follow up and when to return to the Emergency Room. Prescriptions given: Discharge Note I have spoken with the patient and/or caregivers. I have explained the patient' s condition, diagnosis and treatment plan based on the information available to me at this time. I have answered the patient's and/or caregiver's questions and addressed any concerns. The patient and/or caregivers have as good understanding of the patient's diagnosis, condition and treatment plan as can be expected at this point. The vital signs have been stable. The patient's condition is stable and appropriate for discharge from the emergency department. The patient will pursue further outpatient evaluation with the primary care physician or other designated or consulting physician as outlined in the discharge instructions. The patient and/or caregivers are agreeable to this plan of care and follow-up instructions have been explained in detail. The patient and/or caregivers have received these instruction. The patient/and or caregivers are aware that any significant change in condition or worsening of symptoms should prompt an immediate return to this or the closest emergency department or call 911. MELLO EDOUARD was seen on 02/04/19 n the Emergency Room. At that time you were treated for an emergent condition, during your visit Laboratory, Radiology and/or other procedures may have been ordered. It is very important that you follow-up with your Primary Care Physician RODRIGUEZ LEES within the next 24- 48 hours to review your Emergency Room visit and the final results of testing that was ordered. Some test results such as Urine Cultures, Blood Cultures, and other cultures if ordered will not be finalized for 24-48 hours. If you do not have a Primary Care Provider please call the medical records department at [phone] ext [phone] to obtain a copy of your results or you may sign into our patient portal to obtain these results by visiting us @ [email or web address] and completing the following steps: 1. Click on the Patient Portal link 2. Click the Patient Self Enrollment Link to complete the enrollment form and entering your 3. Once the enrollment form is completed you will receive an email with a temporary ID and password at the email address you provided. 4. Next choose a user name and password. Your user name must be at least 4 characters long and your password must be at least 4 characters long. 5. Choose a security question from the list and provide your answer to the question. If you already have signed into the Health Portal you may access your Health Care Information 21/09 by the following steps: 1. Login to our website @ [email or web address] 2. Enter your original user name and password. FAQS The [facility] Portal is an online tool that contains your Lab Results, Radiology Reports, Visit History, Discharge Instructions and Health Summary Lab and Radiology Results will not be available for 72 hours on the portal. The Portal is a secure site, passwords are encryted and URLs are re-written so they cannot be copied and pasted. You and authorized family members are the only ones who can access your Portal. Also there is a timeout feature that protects your information if you leave the Portal page open. If you have technical difficulty please use the Contact Us link on the page this will allow you to submit any questions you have regarding the Portal or you may contact the Medical Record Department at [phone] ext [phone].
[2019-02-04 03:14] LABS: ANION GAP 10.7 MEQ/L (5-15); BLOOD UREA NITROGEN 18 mg/dL (7-17); CHLORIDE 104 mmol/L (98-107); Calcium 9.2 mg/dL (8.4-10.2); Carbon Dioxide 30 mmol/L (22-30); Creatinine 1 0.53 mg/dL (0.52-1.04); Glucose 150 mg/dL (74-106); Potassium 3.5 mmol/L (3.5-5.1); SODIUM 141 mmol/L (137-145)
--- NOTE | 2019-02-04 06:15 | XRAY ---
Indication: Right arm edema and hemoptysis. Elevated d-dimer. History cystic fibrosis. Multiple contiguous axial images obtained through the chest using 80 cc Isovue 370 contrast and PE protocol. Comparison: CT chest without contrast March 19, 2018. There is good opacification of the pulmonary arteries to include the lobar and segmental branches. No filling defect or pulmonary embolus. Heart is not enlarged. Aorta is normal in course and caliber. New right Aubrey Cath. There remains a few a mediastinal lymph nodes, again largest subcarinal measuring 1.7 x 2.2 cm. Lungs again demonstrate cystic fibrosis and right apical consolidation. No infiltrate or effusion. Bony thorax intact again with minimal degenerative changes throughout the spine. Limited upper abdomen including adrenal glands are unremarkable. Impression: 1. Negative pulmonary embolus. 2. Stable cystic fibrosis with right apical consolidation. 3. Stable subcarinal prominent lymph node. Comment: Preliminary interpretation was made by C. No critical discrepancy. CTDI 7.89
[2019-02-04 08:27] VITALS: BP 143/81; O2SAT 93
[2019-02-04 09:01] VITALS: PULSE 65
--- NOTE | 2019-02-04 19:39 | XRAY ---
Indication: Right arm swelling. 2-dimensional ultrasound encoded Doppler imaging of the major venous vessels of the right upper extremity was performed. Comparison: None Visualized right internal jugular vein demonstrates mild focal distention with slow flow and demonstrates normal compressibility. No thrombus seen in the visualized right internal jugular, subclavian, axilla, basilic, brachial, radial, and ulnar veins. Veins demonstrate normal compressibility. Venous waveforms are normal. Impression: Right upper extremity negative for DVT. Comment: Preliminary interpretation was made by [facility]. No discrepancy.
== END 2019-02-04 09:20 | disposition home or self-care (01) ==
LOC: ED 01:22
DX: M79.89 Other specified soft tissue disorders (principal); E84.9 Cystic fibrosis, unspecified; R04.2 Hemoptysis; Z79.899 Other long term (current) drug therapy; E11.9 Type 2 diabetes mellitus without complications; E03.9 Hypothyroidism, unspecified; E78.00 Pure hypercholesterolemia, unspecified
CPT/HCPCS: 36000; 36415; 71260; 80048; 85379; 93971; 94760; 99284

== ENCOUNTER 2019-02-17 20:58 | Observation (INO) | payer BC ==
[2019-02-17] MEDS ORDERED: DUONEB 0.5-3 MG/3 ml Neb IH ONE ×2 (21:25→21:48)
[2019-02-17] MEDS ORDERED: Heparin 5000 UNITS/0.5 ML (HIGH RISK MED) IV ONE (21:27)
[2019-02-17] MEDS ORDERED: Heparin 25,000 units/D5W 250ML PREMIX 25,000 UNITS/250 ML BAG IV SCH (21:30)
[2019-02-17] MEDS ORDERED: Sodium Chloride 0.9% 1000 ML 1,000 ML IV STA (21:34)
--- NOTE | 2019-02-17 21:37 | ERPHSYRPT ---
- History of Present Illness Time Seen by Provider: 02/17/19 21:20 Source: patient, family Exam Limitations: no limitations Patient Subjective Stated Complaint: pt states she has a thrombus to the rt upper ext and has been going through outpatient testing for pe. states she has been short of breath today but had sudden o nset of increased shortness of breath. Triage Nursing Assessment: pt alert and oriented, answers questions approp. pt back per wheelchair. transfers to stretcher per self with steadyg ait noted. pt short of breath at rest. insp and exp wheezing throughout. occasional moist cough noted. edema noted to rt upper arm- pt states has decreased. Physician History: Patient was diagnosed with a right upper extremity DVT and had testing set up as an outpatient for a pulmonary embolus. Patient has been dealing with shortness of breath the entire day, worse this evening after eating dinner. Patient was supposed to start Eliquis this evening, but pharmacy did not have it. Patient has cystic fibrosis and does DuoNeb nebulized, Albuterol nebulized , Saline nebulized and a Vest therapy at home. Timing/Duration: today Activities at Onset: activity (mild), rest Severity of Dyspnea-Max: severe Severity of Dyspnea-Current: moderate Possible Cause: occasional episodes Modifying Factors: Improves With: albuterol nebulizer, rest. Worsens With: activity Associated Symptoms: constant, wheezing, tightness, No chest pain/discomfort, No edema, No fever, No insomnia, No loss of appetite, No lightheadedness, No weakness, No ankle swelling, No hemoptysis, No calf pain, No dizziness, No heaviness, No heart racing, No lightheadedness, No leg swelling, No muscle spasms hands, No painful breathing, No productive cough International travel in last 2 weeks: No Allergies/Adverse Reactions: polymyxin B Allergy (Verified 02/04/19 01:43) Penicillins Adverse Reaction (Verified 11/10/18 21:04) piperacillin [From Zosyn] Adverse Reaction (Verified 11/10/18 21:04) sulfamethoxazole [From Bactrim] Adverse Reaction (Verified 11/10/18 21:04) tazobactam [From Zosyn] Adverse Reaction (Verified 11/10/18 21:04) trimethoprim [From Bactrim] Adverse Reaction (Verified 11/10/18 21:04) Home Medications: Albuterol 2.5 mg/3 ml Neb [Proventil 2.5 mg/3 ml Neb] 1 vial IH TID [History] Albuterol Sulfate [Albuterol Sulfate Hfa] 8.5 gm IH Q4HPRN PRN 03/19/18 [History ] Atorvastatin Calcium 10 mg PO HS 03/19/18 [History] Azithromycin 500 mg PO UD 03/19/18 [History] Escitalopram Oxalate [Lexapro] 20 mg PO DAILY 03/19/18 [History] Fluticasone/Salmeterol 500/50* [Advair 500-50 Diskus] 1 sprays IH BID [History] Insulin Aspart [NovoLOG Insulin] 12 unit SQ AC 03/19/18 [History] Insulin Glargine [Lantus Insulin] 13 units SQ DAILY 03/19/18 [History] Levothyroxine Sodium 50 Mcg [Synthroid 50 Mcg] 1 tab PO DAILY 03/19/18 [ History] Lipase/Protease/Amylase [Zenpep Dr 20,000 Units Capsule] 2 each PO AC 03/19/18 [ History] Omeprazole 20 mg PO DAILY 03/19/18 [History] Hx Tetanus, Diphtheria Vaccination/Date Given: Yes Hx Influenza Vaccination/Date Given: Yes Hx Pneumococcal Vaccination/Date Given: Yes Immunizations Up to Date: Yes - Review of Systems Constitutional: No Fever, No Chills Eyes: No Eye Pain, No Vision Changes Ears, Nose, & Throat: No Nose Congestion, No Nose Discharge, No Mouth Pain, No Mouth Swelling Respiratory: Dyspnea, Dyspnea on Exertion (PRINCE), Wheezing, No Cough Cardiac: No Chest Pain, No Edema, No Syncope Abdominal/Gastrointestinal: No Abdominal Pain, No Nausea, No Vomiting, No Diarrhea, No Hematemesis, No Hematochezia Genitourinary Symptoms: No Dysuria, No Hematuria, No Flank Pain Musculoskeletal: No Back Pain, No Neck Pain, No Myalgias Skin: No Rash Neurological: No Dizziness, No Focal Weakness, No Headache, No Parasthesia, No Sensory Changes Psychological: No Anxiety Endocrine: No Excessive Sweating Hematologic/Lymphatic: No Easy Bleeding, No Easy Bruising All Other Systems: Reviewed and Negative - Past Medical History Pertinent Past Medical History: Yes Neurological History: No Pertinent History ENT History: No Pertinent History Cardiac History: No Pertinent History, High Cholesterol Respiratory History: Other Endocrine Medical History: Diabetes Type II, Hypothyroidism Musculoskeletal History: Arthritis GI Medical History: No Pertinent History History: No Pertinent History Psycho-Social History: No Pertinent History Female Reproductive Disorders: No Pertinent History Other Medical History: Cystic Fibrosis since . Cystic Fibrosis related Diabetes for 20 years - Past Surgical History Past Surgical History: Yes Neuro Surgical History: No Pertinent History Cardiac: No Pertinent History Respiratory: No Pertinent History Gastrointestinal: Cholecystectomy Genitourinary: No Pertinent History Musculoskeletal: No Pertinent History Female Surgical History: No Pertinent History Other Surgical History: Polyp removed from large intestine 2014. Polyp removed from sinus 1980s - Social History Smoking Status: Never smoker Exposure to second hand smoke: No Drug Use: none Patient Lives Alone: No - Nursing Vital Signs Nursing Vital Signs: Initial Vital Signs Temperature 100.5 F 02/17/19 21:06 Pulse Rate 100 H 02/17/19 21:06 Respiratory Rate 24 02/17/19 21:06 Blood Pressure 147/85 02/17/19 21:06 O2 Sat by Pulse Oximetry 97 02/17/19 21:06 Pain Scale Pain Intensity 4 - Physical Exam General Appearance: mild distress, alert Eye Exam: PERRL/EOMI, No scleral icterus, No pale conjunctivae Ears, Nose, Throat Exam: normal ENT inspection, normal pharynx, No nasal congestion, No pharyngeal erythema, No tonsillar exudate, No tonsillar swelling Neck Exam: normal inspection, non-tender, supple, full range of motion, No Brudzinski, No lymphadenopathy (R), No lymphadenopathy (L), No tenderness midline Respiratory Exam: airway intact, diminished breath sounds, accessory muscle use , rhonchi Cardiovascular/Chest Exam: normal heart sounds, regular rate/rhythm, normal peripheral pulses Abdominal/Gastrointestinal Exam: soft, No tenderness, No distention, No mass Extremity Exam: non-tender, normal range of motion, normal inspection, no calf tenderness, no pedal edema Neurologic Exam: alert, oriented x 3, cooperative, product development engineer II-XII nml as tested, sensation nml, No motor deficits Skin Exam: normal color, warm, No dry SpO2 Interpretation: normal SpO2: 97 O2 Delivery: Room Air - Course Nursing assessment & vital signs reviewed: Yes EKG Interpreted by Me: RATE (97), Sinus Rhythm, NORMAL AXIS, NORMAL INTERVALS, NORMAL QRS, NORMAL ST-T, Other (no significant change in comparsion to EKG from 06/19/2018) - CT Exams Chest CT Interpretation: Tele-radiologist Report, Other (negative for pulmonary embolus. Scattered air space opacities more prominent compared to prior exam likely reflecting a combination scarring and pneumonic infiltrate. Scattered bronchiectasis. Small right apical chronic pleural effusion. Cholecystectomy. Scattered nonspecific mediastinal adenopathy similar to prior exam.) Ordered Tests: Active Orders 24 hr Category Date Time Status Refining Engineer STAT Care 02/17/19 21:35 Active EKG-ER Only STAT Care 02/17/19 21:34 Active IV Insertion STAT Care 02/17/19 21:34 Active CHEST WITH CONTRAST [CT] Stat Exams 02/17/19 21:35 Taken BLOOD CULTURE Stat Lab 02/17/19 22:20 Received CBC W DIFF Stat Lab 02/17/19 22:00 Completed CMP Stat Lab 02/17/19 22:00 Completed Lactic Acid Stat Lab 02/17/19 22:11 Completed Lactic Acid Stat Lab 02/18/19 00:15 Ordered MAGNESIUM Stat Lab 02/17/19 22:00 Completed NT PRO BNP Stat Lab 02/17/19 22:00 Completed PROTIME WITH INR Stat Lab 02/17/19 22:00 Completed PTT Stat Lab 02/17/19 22:00 Completed TROPONIN Q3H Lab 02/17/19 22:00 Completed TROPONIN Q3H Lab 02/18/19 00:45 Ordered TROPONIN Q3H Lab 02/18/19 03:45 Ordered TROPONIN Q3H Lab 02/18/19 06:45 Ordered TROPONIN Q3H Lab 02/18/19 09:45 Ordered UA W/RFX UR CULTURE Stat Lab 02/17/19 22:30 Completed VENOUS BLOOD GAS Stat Lab 02/17/19 22:11 Completed Respiratory Therapy Assessment DAILY RT 02/17/19 21:55 Completed Medication Summary Generic Name Dose Route Start Last Admin Trade Name Freq PRN Reason Stop Dose Admin Heparin Sodium/Dextrose 25,000 units in 250 mls @ 11 mls/hr 02/17/19 21:30 Heparin 25,000 Units/D5w 250ml Premix IV 03/19/19 21:29 .[id number] GALEN Discontinued Medications Generic Name Dose Route Start Last Admin Trade Name Freq PRN Reason Stop Dose Admin Albuterol/Ipratropium 3 ml 02/17/19 21:25 02/17/19 21:52 Duoneb 0.5-3 Mg/3 Ml Neb IH 02/17/19 21:26 3 ml STAT ONE Administration Albuterol/Ipratropium Confirm 02/17/19 21:48 Duoneb 0.5-3 Mg/3 Ml Neb Administered 02/17/19 21:49 Dose 3 ml IH .STK-MED ONE Heparin Sodium (Beef Lung) 5,000 unit 02/17/19 21:27 Heparin 5000 Units/0.5 Ml (High Risk Med) IV 02/17/19 21:28 STAT ONE Heparin Sodium (Beef Lung) Confirm 02/17/19 21:59 Heparin 5000 Units/0.5 Ml (High Risk Med) Administered 02/17/19 22:00 Dose 5,000 unit .ROUTE .STK-MED ONE Heparin Sodium (Beef Lung) Confirm 02/17/19 22:06 Heparin 5000 Units/0.5 Ml (High Risk Med) Administered 02/17/19 22:07 Dose 5,000 unit .ROUTE .STK-MED ONE Sodium Chloride 1,000 mls @ 999 mls/hr 02/17/19 21:34 02/17/19 23:06 Sodium Chloride 0.9% 1000 Ml IV 02/17/19 22:34 Infused .Q1H1M STA Infusion Sodium Chloride Confirm 02/17/19 21:59 Sodium Chloride 0.9% 1000 Ml Administered 02/17/19 22:00 Dose 1,000 mls @ ud .ROUTE .STK-MED ONE Meropenem 1 g/ Sodium Chloride 100 mls @ 200 mls/hr 02/17/19 22:44 02/17/19 23:13 IV 02/17/19 23:13 200 mls/hr STAT ONE Administration Sodium Chloride Confirm 02/17/19 23:04 Sodium Chloride 0.9% 100 Ml Ivpb Administered 02/17/19 23:05 Dose 100 mls @ ud IV .STK-MED ONE Meropenem Confirm 02/17/19 23:03 Merrem 1 Gm Administered 02/17/19 23:04 Dose 1 g IV .STK-MED ONE Lab/Rad Data: Laboratory Result Diagrams 02/17/19 22:00 02/17/19 22:00 Laboratory Results 02/17/19 02/17/19 02/17/19 Range/Units 22:30 22:23 22:11 WBC (4.0-10.5) K/mm3 RBC (4.1-5.4) M/mm3 Hgb (12.0-16.0) gm/dl Hct (35-47) % MCV (78-100) fl MCH (26-32) pg MCHC (32-36) g/dl RDW (11.5-14.0) % Plt Count (150-450) K/mm3 MPV (6-9.5) fl Gran % (36.0-66.0) % Eos # (Auto) (0-0.5) Absolute Lymphs (auto) (1.0-4.6) Absolute Monos (auto) (0.0-1.3) Lymphocytes % (24.0-44.0) % Monocytes % (0.0-12.0) % Eosinophils % (0.00-5.0) % Basophils % (0.0-0.4) % Absolute Granulocytes (1.4-6.9) Basophils # (0-0.4) PT (9.95-12.35) SECONDS INR (0.8-3.0) APTT (25.3-37.0) SECONDS pO2/FiO2 Ratio 36 % VBG pH 7.33 (7.32-7.42) VBG pCO2 at Pat Temp 54 (42-55) mm/Hg VBG pO2 at Pat Temp 32 (25-40) mm/Hg VBG HCO3 28.5 H (22-28) meq/L VBG O2 Sat (Rach) 64.9 L (95-100) VBG Base Excess 1.6 (-2.0-2.0) VBG Hemoglobin 63.5 VBG Carboxyhemoglobin 1.7 (0.0-6.9) % T HGB POC Potassium 3.3 L (3.5-5.1) Sodium (137-145) mmol/L Potassium (3.5-5.1) mmol/L Chloride (98-107) mmol/L Carbon Dioxide (22-30) mmol/L Anion Gap (5-15) MEQ/L BUN (7-17) mg/dL Creatinine (0.52-1.04) mg/dL Estimated GFR ML/MIN Glucose (74-106) mg/dL Lactic Acid 2.0 (0.4-2.0) Calcium (8.4-10.2) mg/dL Magnesium (1.6-2.3) mg/dL Total Bilirubin (0.2-1.3) mg/dL AST (14-36) U/L ALT (0-35) U/L Alkaline Phosphatase (38-126) U/L Troponin I (0.000-0.034) ng/mL NT-Pro-B Natriuret Pep (0-900) pg/mL Serum Total Protein (6.3-8.2) g/dL Albumin (3.5-5.0) g/dL Urine Color YELLOW (YELLOW) Urine Appearance CLEAR (CLEAR) Urine pH 5.0 (5-6) Ur Specific [place] 1.022 (1.005-1.025) Urine Protein NEGATIVE (Negative) Urine Ketones NEGATIVE (NEGATIVE) Urine Blood NEGATIVE (0-5) Giuseppe/ul Urine Nitrite NEGATIVE (NEGATIVE) Urine Bilirubin NEGATIVE (NEGATIVE) Urine Urobilinogen NEGATIVE (0-1) mg/dL Ur Leukocyte Esterase NEGATIVE (NEGATIVE) Urine WBC (Auto) NONE (0-5) /HPF Urine RBC (Auto) NONE (0-2) /HPF Urine Culture Reflexed NO (NO) Urine Glucose >=500 (NEGATIVE) mg/dL Influenza Type A Ag NEGATIVE (NEGATIVE) Influenza Type B Ag NEGATIVE (NEGATIVE) RSV (PCR) NEGATIVE (Negative) 02/17/19 02/17/19 02/17/19 Range/Units 22:00 22:00 22:00 WBC (4.0-10.5) K/mm3 RBC (4.1-5.4) M/mm3 Hgb (12.0-16.0) gm/dl Hct (35-47) % MCV (78-100) fl MCH (26-32) pg MCHC (32-36) g/dl RDW (11.5-14.0) % Plt Count (150-450) K/mm3 MPV (6-9.5) fl Gran % (36.0-66.0) % Eos # (Auto) (0-0.5) Absolute Lymphs (auto) (1.0-4.6) Absolute Monos (auto) (0.0-1.3) Lymphocytes % (24.0-44.0) % Monocytes % (0.0-12.0) % Eosinophils % (0.00-5.0) % Basophils % (0.0-0.4) % Absolute Granulocytes (1.4-6.9) Basophils # (0-0.4) PT 12.2 (9.95-12.35) SECONDS INR 1.08 (0.8-3.0) APTT 32.7 (25.3-37.0) SECONDS pO2/FiO2 Ratio % VBG pH (7.32-7.42) VBG pCO2 at Pat Temp (42-55) mm/Hg VBG pO2 at Pat Temp (25-40) mm/Hg VBG HCO3 (22-28) meq/L VBG O2 Sat (Rach) (95-100) VBG Base Excess (-2.0-2.0) VBG Hemoglobin VBG Carboxyhemoglobin (0.0-6.9) % T HGB POC Potassium (3.5-5.1) Sodium 141 (137-145) mmol/L Potassium 3.3 L (3.5-5.1) mmol/L Chloride 104 (98-107) mmol/L Carbon Dioxide 29 (22-30) mmol/L Anion Gap 11.2 (5-15) MEQ/L BUN 15 (7-17) mg/dL Creatinine 0.60 (0.52-1.04) mg/dL Estimated GFR > 60.0 ML/MIN Glucose 222 H (74-106) mg/dL Lactic Acid (0.4-2.0) Calcium 8.3 L (8.4-10.2) mg/dL Magnesium 1.6 (1.6-2.3) mg/dL Total Bilirubin 0.70 (0.2-1.3) mg/dL AST 40 H (14-36) U/L ALT 27 (0-35) U/L Alkaline Phosphatase 73 (38-126) U/L Troponin I < 0.012 (0.000-0.034) ng/mL NT-Pro-B Natriuret Pep 128 (0-900) pg/mL Serum Total Protein 7.1 (6.3-8.2) g/dL Albumin 3.5 (3.5-5.0) g/dL Urine Color (YELLOW) Urine Appearance (CLEAR) Urine pH (5-6) Ur Specific [place] (1.005-1.025) Urine Protein (Negative) Urine Ketones (NEGATIVE) Urine Blood (0-5) Giuseppe/ul Urine Nitrite (NEGATIVE) Urine Bilirubin (NEGATIVE) Urine Urobilinogen (0-1) mg/dL Ur Leukocyte Esterase (NEGATIVE) Urine WBC (Auto) (0-5) /HPF Urine RBC (Auto) (0-2) /HPF Urine Culture Reflexed (NO) Urine Glucose (NEGATIVE) mg/dL Influenza Type A Ag (NEGATIVE) Influenza Type B Ag (NEGATIVE) RSV (PCR) (Negative) 02/17/19 Range/Units 22:00 WBC 8.6 (4.0-10.5) K/mm3 RBC 4.07 L (4.1-5.4) M/mm3 Hgb 11.6 L (12.0-16.0) gm/dl Hct 36.4 (35-47) % MCV 89.4 (78-100) fl MCH 28.5 (26-32) pg MCHC 31.9 L (32-36) g/dl RDW 15.9 H (11.5-14.0) % Plt Count 197 (150-450) K/mm3 MPV 9.4 (6-9.5) fl Gran % 79.5 H (36.0-66.0) % Eos # (Auto) 0.27 (0-0.5) Absolute Lymphs (auto) 0.76 L (1.0-4.6) Absolute Monos (auto) 0.70 (0.0-1.3) Lymphocytes % 8.8 L (24.0-44.0) % Monocytes % 8.1 (0.0-12.0) % Eosinophils % 3.1 (0.00-5.0) % Basophils % 0.5 (0.0-0.4) % Absolute Granulocytes 6.87 (1.4-6.9) Basophils # 0.04 (0-0.4) PT (9.95-12.35) SECONDS INR (0.8-3.0) APTT (25.3-37.0) SECONDS pO2/FiO2 Ratio % VBG pH (7.32-7.42) VBG pCO2 at Pat Temp (42-55) mm/Hg VBG pO2 at Pat Temp (25-40) mm/Hg VBG HCO3 (22-28) meq/L VBG O2 Sat (Rach) (95-100) VBG Base Excess (-2.0-2.0) VBG Hemoglobin VBG Carboxyhemoglobin (0.0-6.9) % T HGB POC Potassium (3.5-5.1) Sodium (137-145) mmol/L Potassium (3.5-5.1) mmol/L Chloride (98-107) mmol/L Carbon Dioxide (22-30) mmol/L Anion Gap (5-15) MEQ/L BUN (7-17) mg/dL Creatinine (0.52-1.04) mg/dL Estimated GFR ML/MIN Glucose (74-106) mg/dL Lactic Acid (0.4-2.0) Calcium (8.4-10.2) mg/dL Magnesium (1.6-2.3) mg/dL Total Bilirubin (0.2-1.3) mg/dL AST (14-36) U/L ALT (0-35) U/L Alkaline Phosphatase (38-126) U/L Troponin I (0.000-0.034) ng/mL NT-Pro-B Natriuret Pep (0-900) pg/mL Serum Total Protein (6.3-8.2) g/dL Albumin (3.5-5.0) g/dL Urine Color (YELLOW) Urine Appearance (CLEAR) Urine pH (5-6) Ur Specific [place] (1.005-1.025) Urine Protein (Negative) Urine Ketones (NEGATIVE) Urine Blood (0-5) Giuseppe/ul Urine Nitrite (NEGATIVE) Urine Bilirubin (NEGATIVE) Urine Urobilinogen (0-1) mg/dL Ur Leukocyte Esterase (NEGATIVE) Urine WBC (Auto) (0-5) /HPF Urine RBC (Auto) (0-2) /HPF Urine Culture Reflexed (NO) Urine Glucose (NEGATIVE) mg/dL Influenza Type A Ag (NEGATIVE) Influenza Type B Ag (NEGATIVE) RSV (PCR) (Negative) - Progress Progress: re-examined Air Movement: good Progress Note: 02/17/19 22:08 Patient declined starting IV heparin bolus and drip for treatment of DVT/ Pulmonary Embolus until we discussed her situation with her pulmonologists at [facility] in [place], [place]. Patient understands the risk of potentially increasing size of pulmonary embolus without treatment that may lead to potentially worsening symptoms and even without starting the bolus and drip. 02/17/19 22:35 Discussed the patient with Dr Tomlin, [employer] at [facility] in [place], [place]. Dr Tomlin accepted patient for transfer, but no beds will be available this evening at [facility] in [place], [place]. Dr Tomlin states patient can be started on Meropenem according to the ESBL bacteria patient has in her history and Colistin if we have it to cover her pseudomonas strains. 02/17/19 22:50 Discussed the patient with Dr Morrison, Hospitalist at [facility] and explained the bed situation at [facility] in [place], [place]. Dr Morrison accepted the patient for observation until patient's bed is open at [facility]. 02/18/19 00:47 Patient is resting comfortably with no type of respiratory distress. Patient would like something orally for her DVT in the right upper extremity such as the Eliquis prescribed to her by her Testboard Operator. Blood Culture(s) Obtained: Yes Antibiotics given: Yes Discussed with .: Marlene (@22:50, discussed the patient with Dr Morrison, hospitalist at [facility]. Dr Morrison accepted the patient for observation) Will see patient in: hospital (observation) Counseled pt/family regarding: lab results, diagnosis, need for follow-up, rad results - Departure Departure Disposition: Observation ([facility] Telemetry) Clinical Impression: Cystic fibrosis exacerbation, Elevated blood pressure reading without diagnosis of hypertension, Hypokalemia, Infiltrate of lung present on computed tomography DVT of upper extremity (deep vein thrombosis) Qualifiers: Affected thrombotic vein of extremity: unspecified vein of extremity Chronicity : acute Laterality: right Qualified Code(s): I82.621 - Acute embolism and thrombosis of deep veins of right upper extremity Condition: Fair Critical Care Time: No Referrals: RODRIGUEZ LEES [Primary Care Provider] -
[2019-02-17] MEDS ORDERED: Sodium Chloride 0.9% 1000 ML 1,000 ML ONE (21:59)
[2019-02-17] MEDS ORDERED: D5W IV ONE ×2 (21:59→22:07)
[2019-02-17] MEDS ORDERED: HEPARIN IV ONE ×2 (21:59→22:07)
[2019-02-17] MEDS ORDERED: Heparin 5000 UNITS/0.5 ML (HIGH RISK MED) ONE ×2 (21:59→22:06)
[2019-02-17 22:15] LABS: VBG BASE EXCESS 1.6 (-2.0-2.0); VBG CARBOXYHEMOGLOBIN 1.7 % T HGB (0.0-6.9); VBG HCO3- 28.5 meq/L (22-28); VBG PCO2 54 mm/Hg (42-55); VBG PO2 32 mm/Hg (25-40); VBG POTASSIUM 3.3 (3.5-5.1); VBG pH 7.33 (7.32-7.42)
[2019-02-17 22:16] LABS: VBG FIO2 36 %; VBG HEMOGLOBIN 63.5; VBG O2 SATURATION 64.9 (95-100)
[2019-02-17 22:21] LABS: Absolute Neutrophil Ct (ANC) 6.87 (1.4-6.9); BASOPHIL % 0.5 % (0.0-0.4); Basophil (Absolute #) 0.04 (0-0.4); Eosinophil % 3.1 % (0.00-5.0); Eosinophil (Absolute #) 0.27 (0-0.5); Hematocrit 36.4 % (35-47); Hemoglobin 11.6 gm/dl (12.0-16.0); Lymphocyte (Absolute #) 0.76 (1.0-4.6); Lymphocytes % 8.8 % (24.0-44.0); Mean Cell Volume 89.4 fl (78-100); Mean Corpuscular Hemoglobin 28.5 pg (26-32); Mean Corpuscular Hgb Concent. 31.9 g/dl (32-36); Mean Platelet Volume 9.4 fl (6-9.5); Monocytes % 8.1 % (0.0-12.0); Neutrophil % 79.5 % (36.0-66.0); Platelet Count 197 K/mm3 (150-450); Red Blood Count 4.07 M/mm3 (4.1-5.4); Red Cell Distribution Width 15.9 % (11.5-14.0); White Blood Count 8.6 K/mm3 (4.0-10.5)
[2019-02-17 22:32] LABS: INR 1.08 (0.8-3.0); PROTIME 12.2 SECONDS (9.95-12.35)
[2019-02-17 22:35] LABS: PTT 32.7 SECONDS (25.3-37.0)
[2019-02-17] MEDS ORDERED: Merrem 1 GM 1 G in Sodium Chloride 100ML MINI-BAG PLUS 100 ML IV ONE (22:44)
[2019-02-17 22:45] LABS: ALBUMIN 3.5 g/dL (3.5-5.0); ALKALINE PHOSPHATASE 73 U/L (38-126); ANION GAP 11.2 MEQ/L (5-15); BLOOD UREA NITROGEN 15 mg/dL (7-17); CHLORIDE 104 mmol/L (98-107); Calcium 8.3 mg/dL (8.4-10.2); Carbon Dioxide 29 mmol/L (22-30); Glucose 222 mg/dL (74-106); MAGNESIUM 1.6 mg/dL (1.6-2.3); NT PRO BNP 128 pg/mL (0-900); Potassium 3.3 mmol/L (3.5-5.1); SGOT/AST 40 U/L (14-36); SGPT/ALT 27 U/L (0-35); SODIUM 141 mmol/L (137-145); Total Protein 7.1 g/dL (6.3-8.2)
[2019-02-17 23:00] LABS: INFLUENZA A NEGATIVE (NEGATIVE); INFLUENZA B NEGATIVE (NEGATIVE); RESPIRATORY SYNCTIAL VIRUS NEGATIVE (Negative)
[2019-02-17] MEDS ORDERED: Merrem 1 GM IV ONE (23:03)
[2019-02-17] MEDS ORDERED: Sodium Chloride 0.9% 100 ML IVPB 100 ML IV ONE (23:04)
[2019-02-17 23:18] LABS: Appearance CLEAR (CLEAR); Bilirubin NEGATIVE (NEGATIVE); Blood NEGATIVE Ery/ul (0-5); Glucose >=500 mg/dL (NEGATIVE); Ketones NEGATIVE (NEGATIVE); Leukocyte Esterase NEGATIVE (NEGATIVE); Nitrite NEGATIVE (NEGATIVE); Protein,Urine Dip NEGATIVE (Negative); Specific Gravity 1.022 (1.005-1.025); Urobilinogen NEGATIVE mg/dL (0-1)
[2019-02-18] MEDS ORDERED: Klor Con 10 MEQ PO ONE ×2 (00:37→02:14)
[2019-02-18] MEDS ORDERED: TYLENOL 325 MG PO PRN (02:59)
[2019-02-18] MEDS ORDERED: DUONEB 0.5-3 MG/3 ml Neb IH SCH (02:59)
[2019-02-18] MEDS: Sodium Chloride 0.9% 1000 ML 1,000 ML IV SCH ×2 (03:10→14:35)
[2019-02-18] MEDS ORDERED: TYLENOL 325 MG ONE (03:34)
[2019-02-18] MEDS ORDERED: DUONEB 0.5-3 MG/3 ml Neb IH ONE (04:00)
[2019-02-18] MEDS ORDERED: Sodium Chloride 3 ML UD NEBULES IH ONE (04:07)
[2019-02-18] MEDS: Sodium Chloride 3 ML UD NEBULES IH SCH ×3 (04:11→13:47)
[2019-02-18] MEDS: DUONEB 0.5-3 MG/3 ml Neb IH SCH ×5 (04:11→22:29)
[2019-02-18] MEDS ORDERED: Sodium Chloride 0.9% 100 ML IVPB 100 ML IV ONE (05:36)
[2019-02-18] MEDS ORDERED: Merrem 1 GM IV ONE (05:36)
[2019-02-18] MEDS ORDERED: MEROPENEM-0.9% NACL 1 GRAM/50 1 GM/50 ML PIGGYBACK IV SCH (06:00)
[2019-02-18] MEDS: TYLENOL EXTRA STRENGTH 500 MG PO PRN ×3 (06:14→21:53)
[2019-02-18 06:48] LABS: ANION GAP 6.2 MEQ/L (5-15); BLOOD UREA NITROGEN 10 mg/dL (7-17); CHLORIDE 107 mmol/L (98-107); Calcium 8.2 mg/dL (8.4-10.2); Carbon Dioxide 29 mmol/L (22-30); Creatinine 1 0.53 mg/dL (0.52-1.04); Glucose 145 mg/dL (74-106); SODIUM 139 mmol/L (137-145)
--- NOTE | 2019-02-18 09:45 | XRAY ---
Indication: Short of breath. Cystic fibrosis. Multiple contiguous axial images obtained through the chest using 80 cc Isovue 370 contrast and PE protocol. Comparison: February 07, 2019. There is good opacification of the pulmonary arteries to include the lobar and segmental branches. No filling defect or pulmonary embolus. Heart is not enlarged. Stable right Port-A-Cath. Aorta is normal in course and caliber. No pathologic mediastinal/hilar lymphadenopathy. Examination of the lung parenchyma again demonstrates diffuse cystic fibrosis with scattered fibrosis/scarring. New patchy airspace disease scattered in both upper and left lower lobes. No effusion. Impression: 1. Negative pulmonary embolus. 2. New bilateral airspace disease. 3. Stable cystic fibrosis and scattered fibrosis/scarring. Comment: Preliminary interpretation was made by [facility]. No discrepancy. CTDI 7.89 Comment: Preliminary interpretation was made by [facility]
[2019-02-18] MEDS ORDERED: Ventolin Hfa MDI IH PRN (09:49)
[2019-02-18] MEDS: SYNTHROID 50 MCG PO SCH (09:57)
[2019-02-18] MEDS: ELIQUIS 2.5 MG TABLET PO SCH ×2 (09:57→21:54)
[2019-02-18] MEDS ORDERED: INSULIN GLARGINE HUM REC ANLOG 13 UNIT SQ SCH (10:00)
[2019-02-18] MEDS ORDERED: NON-FORMULARY ITEM (Linaclotide [Linzess] 145 MCG) PO SCH (10:00)
[2019-02-18] MEDS ORDERED: NON-FORMULARY ITEM (Escitalopram Oxalate [Lexapro] 20 MG) PO SCH (10:00)
[2019-02-18] MEDS ORDERED: PROVENTIL COMMON CANISTER IH PRN (10:00)
[2019-02-18] MEDS ORDERED: [UNRECOGNIZED DRUG - OTHER] PO SCH (10:00)
[2019-02-18] MEDS ORDERED: NON-FORMULARY ITEM (Omeprazole [Omeprazole] 20 MG) PO SCH (10:00)
[2019-02-18] MEDS ORDERED: MEDICATION INTERVENTION MC SCH ×3 (10:30)
[2019-02-18] MEDS ORDERED: AMYLASE PO SCH (11:30)
[2019-02-18] MEDS ORDERED: LIPASE PO SCH (11:30)
[2019-02-18] MEDS ORDERED: PROTEASE PO SCH (11:30)
[2019-02-18] MEDS: Lexapro 10 MG PO SCH (11:41)
[2019-02-18] MEDS: Protonix 40MG Tablet PO SCH (11:41)
[2019-02-18] MEDS: Lantus Insulin SQ SCH (11:54)
[2019-02-18] MEDS: NovoLOG Insulin SQ SCH ×2 (13:35→18:20)
[2019-02-18] MEDS: Advair Hfa 230/21 Mcg COMMON CANISTER IH SCH ×2 (13:49→22:28)
[2019-02-18] MEDS: Merrem 1 GM 1 G in Sodium Chloride 100ML MINI-BAG PLUS 100 ML IV SCH ×2 (14:50→21:53)
[2019-02-18] MEDS ORDERED: AZITHROMYCIN 500 MG PO SCH (15:15)
[2019-02-18] MEDS: NON-FORMULARY ITEM (Hydroxychloroquine Sulfate [Hydroxychloroquine Sulfate] 0 MG) PO SCH (18:08)
[2019-02-18] MEDS ORDERED: Flonase NASAL NS ONE (18:19)
[2019-02-18] MEDS ORDERED: ADVAIR 500-50 DISKUS IH SCH (22:00)
[2019-02-18] MEDS ORDERED: Mirapex 0.5 MG Tablet PO SCH (22:00)
[2019-02-18] MEDS ORDERED: NON-FORMULARY ITEM (Atorvastatin Calcium [Atorvastatin Calcium] 10 MG) PO SCH (22:00)
[2019-02-18] MEDS ORDERED: PATIENT OWN MEDICATION PO SCH (22:00)
[2019-02-18] MEDS ORDERED: Zocor 10MG PO SCH (22:00)
[2019-02-18] MEDS ORDERED: PRAMIPEXOLE DI HCL 0.25 MG PO SCH (22:00)
[2019-02-19] MEDS: DUONEB 0.5-3 MG/3 ml Neb IH SCH ×3 (01:45→13:48)
[2019-02-19] MEDS: Sodium Chloride 0.9% 1000 ML 1,000 ML IV SCH (02:50)
[2019-02-19] MEDS: Merrem 1 GM 1 G in Sodium Chloride 100ML MINI-BAG PLUS 100 ML IV SCH ×2 (06:04→15:14)
[2019-02-19] MEDS: SYNTHROID 50 MCG PO SCH (06:06)
[2019-02-19] MEDS: Lantus Insulin SQ SCH (08:47)
[2019-02-19] MEDS: TYLENOL EXTRA STRENGTH 500 MG PO PRN ×2 (08:53→15:17)
[2019-02-19] MEDS: NovoLOG Insulin SQ SCH ×2 (08:57→11:16)
[2019-02-19] MEDS: Advair Hfa 230/21 Mcg COMMON CANISTER IH SCH (09:09)
[2019-02-19] MEDS ORDERED: Flonase NASAL NS SCH ×2 (10:00)
[2019-02-19] MEDS ORDERED: PATIENT OWN MEDICATION PO SCH (10:00)
[2019-02-19] MEDS: ELIQUIS 2.5 MG TABLET PO SCH (10:26)
[2019-02-19] MEDS: Lexapro 10 MG PO SCH (10:26)
[2019-02-19] MEDS: Protonix 40MG Tablet PO SCH (10:26)
[2019-02-19] MEDS: NON-FORMULARY ITEM (Hydroxychloroquine Sulfate [Hydroxychloroquine Sulfate] 0 MG) PO SCH (11:37)
--- NOTE | 2019-02-19 13:03 | PCM.SSS ---
History of Present Illness - Chief Complaint Chief Complaint: Exacerbation of Cystic Fibrosis; Hypokalemia History of Present Illness: is a 53 year old female with CF,IDDM and recently dg DVT RUE presented to ER with sudden onset SOB.ER diagnosed LLLpneumonia and ruled out PE . She was admitted for OBS until bed becomes available at [facility] where [facility] Specialty can manage her care. Medications & Allergies Home Medications: Home Medication List Albuterol 2.5 mg/3 ml Neb [Proventil 2.5 mg/3 ml Neb] 1 vial IH TID [History Confirmed 02/18/19] Albuterol Sulfate [Albuterol Sulfate Hfa] 8.5 gm IH Q4HPRN PRN 03/19/18 [ History Confirmed 02/18/19] Atorvastatin Calcium 10 mg PO HS 03/19/18 [History Confirmed 02/18/19] Azithromycin 500 mg PO UD 03/19/18 [History Confirmed 02/18/19] Escitalopram Oxalate [Lexapro] 20 mg PO DAILY 03/19/18 [History Confirmed ] Fluticasone/Salmeterol 500/50* [Advair 500-50 Diskus] 1 inh IH BID 03/19/18 [ History Confirmed 02/18/19] Insulin Aspart [NovoLOG Insulin] 12 unit SQ AC 03/19/18 [History Confirmed 02/18/19] Levothyroxine Sodium 50 Mcg [Synthroid 50 Mcg] 50 mcg PO UD 03/19/18 [ History Confirmed 02/18/19] Lipase/Protease/Amylase [Zenpreciousp Dr 20,000 Units Capsule] 2 each PO AC 03/19/18 [ History Confirmed 02/18/19] Omeprazole 20 mg PO DAILY 03/19/18 [History Confirmed 02/18/19] Apixaban [Eliquis] 5 mg PO BID 02/18/19 [History Confirmed 02/18/19] Hydroxychloroquine Sulfate 300 mg PO DAILY 02/18/19 [History Confirmed 02/18/19] Insulin Glargine,Hum.rec.anlog [Basaglar Kwikpen U-100] 13 unit SQ DAILY [History Confirmed 02/18/19] Linaclotide [Linzess] 145 mcg PO DAILY 02/18/19 [History Confirmed 02/18/19] Mometasone Furoate [Nasonex] 2 spray NS QAM 02/18/19 [History Confirmed 02/18/19 ] Non-Formulary Drug [Non-Formulary Item] 1 each PO UD 02/18/19 [History Confirmed 02/18/19] Pramipexole Di-HCl [Mirapex] 0.25 mg PO HS 02/18/19 [History Confirmed 02/18/19] Allergies/Adverse Reactions: Allergies Allergy/AdvReac Type Severity Reaction Status Date / Time polymyxin B Allergy Verified 02/18/19 03:14 Penicillins AdvReac Verified 02/18/19 03:14 piperacillin [From Zosyn] AdvReac Verified 02/18/19 03:14 sulfamethoxazole AdvReac Verified 02/18/19 03:14 [From Bactrim] tazobactam [From Zosyn] AdvReac Verified 02/18/19 03:14 trimethoprim [From Bactrim] AdvReac Verified 02/18/19 03:14 - Past Medical History Past Medical History: Yes Neurological History: No Pertinent History ENT History: No Pertinent History Cardiac History: No Pertinent History, High Cholesterol Respiratory History: Other Endocrine Medical History: Diabetes Type II, Hypothyroidism Musculoskelatal History: Arthritis GI Medical History: GERD History: No Pertinent History Pyscho-Social History: No Pertinent History Reproductive Disorders: No Pertinent History Comment: Cystic Fibrosis since . Cystic Fibrosis related Diabetes for 20 years - Female History Hx Last Menstrual Period: 2016 Are you now?: No - Past Surgical History Past Surgical History: Yes Neuro Surgical History: No Pertinent History Cardiac History: No Pertinent History Respiratory Surgery: No Pertinent History GI Surgical History: Cholecystectomy Genitourinary Surgical Hx: No Pertinent History Musculskeletal Surgical Hx: No Pertinent History Female Surgical History: No Pertinent History Other Surgical History: Polyp removed from large intestine 2014. Polyp removed from sinus 1980s - Social History Smoking Status: Never smoker Exposure to second hand smoke: No Alcohol: None Drug Use: none - Physical Exam Vital Signs: Vital Signs - 24 hr Temp Pulse Resp BP Pulse Ox 02/19/19 09:10 84 21 94 L 02/19/19 08:00 99.3 F 87 16 175/79 94 L 02/19/19 04:10 99.1 F 83 17 145/74 95 02/19/19 00:00 100.6 F 87 26 H 133/69 90 L 02/18/19 22:30 87 24 95 02/18/19 20:00 100.2 F 99 H 24 142/68 95 02/18/19 17:39 91 H 22 92 L 02/18/19 16:00 98.3 F 98 H 22 138/68 93 L 02/18/19 13:58 84 18 92 L Oxygen-Last 24 hours O2 Percentage 2 Liters = 28% O2 Percentage 3 Liters = 32% O2 Percentage 3 Liters = 32% O2 Percentage 3 Liters = 32% O2 Percentage 4 Liters = 36% General Appearance: mild distress (cough-struggling to bring up mucus, producing maroon to green mucus and bright red sputum the rests without distress.) Neurologic Exam: alert, oriented x 3, cooperative Eye Exam: eyes nml inspection Ears, Nose, Throat Exam: moist mucous membranes, other (no exudatesin pharynx) Neck Exam: normal inspection Respiratory Exam: diminished breath sounds, rhonchi (left base), wheezing, other (see Resp Therapist notes-on 4L O2) Cardiovascular Exam: regular rate/rhythm Gastrointestinal/Abdomen Exam: soft, normal bowel sounds (nontender LE ,right upper extremity dg DVT right hand mild edema) Pelvic Exam: not done Rectal Exam: deferred Back Exam: normal inspection Extremity Exam: normal inspection Skin Exam: warm, dry, pale Results - Labs Lab/Micro Results: Accuchecks Date 02/19/19 Date 02/18/19 Date 02/18/19 Time 07:30 Time 23:55 Time 22:00 Accucheck Value: 149 Accucheck Value: 125 Accucheck Value: 43 Accucheck Value: 288 Lab Results-Last 24 Hours 02/18/19 Range/Units 06:30 Hemoglobin A1c 9.27 H (4.5-6.0) % Microbiology 02/17/19 22:20 Blood Culture - Preliminary Blood NO GROWTH TO DATE 02/17/19 22:15 Blood Culture - Preliminary Blood NO GROWTH TO DATE Accuchecks Date 02/19/19 Date 02/18/19 Date 02/18/19 Time 07:30 Time 23:55 Time 22:00 Accucheck Value: 149 Accucheck Value: 125 Accucheck Value: 43 Accucheck Value: 288 - Radiology Impressions Radiology Exams & Impressions: Radiology Procedures Category Date Time Status CHEST WITH CONTRAST [CT] Stat Exams 02/17/19 21:35 Completed Hospital Summary - Hospital Course Hospital Course: Patient has CF followed in [place] with Dr Keyla Victoria. Her PCP is Dr Rhea Lees in [facility]. She presented to ER with c/o worsening of shortness of breath ,was out to dinner with her and had sudden onset of SOB when leaving the restaurant.Patient was recently Dg with DVT right upper ext and was to start on Eliquis the day prior to admission.Chest CT was neg for PE but CXR positive for LLL infiltrate .[employer] following her for DVT is is Dr Thelma Mark in [place].Patient was admitted for care until bed available at . Please see med list and nursing notes and Resp Therapist care notes. Patient is stable at present but needing a higher level of care due to CF and DVT. - Vitals & Intake/Output Vital Signs: Vital Signs Temperature 99.3 F 02/19/19 08:00 Pulse Rate 84 02/19/19 09:10 Respiratory Rate 21 02/19/19 09:10 Blood Pressure 175/79 02/19/19 08:00 O2 Sat by Pulse Oximetry 94 L 02/19/19 09:10 Oxygen-Last Documented O2 Percentage 2 Liters = 28% Intake & Output: Intake & Output 02/17/19 02/18/19 02/19/19 02/20/19 11:59 11:59 11:59 11:59 Intake Total 240 4208 Output Total 3800 Balance 240 408 Weight 63.8 kg - Lab Result Diagrams: 02/17/19 22:00 02/18/19 05:45 Lab Results-Last 24 Hrs: Accuchecks Date 02/19/19 Date 02/18/19 Date 02/18/19 Time 07:30 Time 23:55 Time 22:00 Accucheck Value: 149 Accucheck Value: 125 Accucheck Value: 43 Accucheck Value: 288 Lab Results-Last 24 Hours 02/18/19 Range/Units 06:30 Hemoglobin A1c 9.27 H (4.5-6.0) % Micro Results-Entire Visit: Microbiology 02/17/19 22:20 Blood Culture - Preliminary Blood NO GROWTH TO DATE 02/17/19 22:15 Blood Culture - Preliminary Blood NO GROWTH TO DATE Accuchecks Date 02/19/19 Date 02/18/19 Date 02/18/19 Time 07:30 Time 23:55 Time 22:00 Accucheck Value: 149 Accucheck Value: 125 Accucheck Value: 43 Accucheck Value: 288 - Radiology Exams Ordered Rad Exams-Entire Visit: Radiology Procedures Category Date Time Status CHEST WITH CONTRAST [CT] Stat Exams 02/17/19 21:35 Completed - Procedures and Test Procedures and Tests throughout Hospitalization: Therapy Orders & Screens 02/17/19 21:55 Respiratory Therapy Assessment DAILY Comment: 02/18/19 02:59 EKG Comment: 02/18/19 04:06 RT Screen per Nursing Assess ONCE Comment: Protocol Order Physician Instructions: Greater than 3 points order RT Admission Screen Reason For Exam: Triggered on Admission Diagnosis: Exacerbation of Cystic Fibrosis; Hypokalemia Diagnosis: Exacerbation of Cystic Fibrosis; Hypokalemia Pneumonia: No Home O2: Yes Asthma: No CHF: No Home CPAP/BIPAP: No Home Nebs/MDI: Yes Total Points: 10 02/18/19 04:09 Respiratory Therapy Assessment DAILY Comment: Diagnosis: Exacerbation of Cystic Fibrosis; Hypokalemia 02/18/19 04:10 Oxygen Nasal Cannula 4 lpm Comment: Diagnosis: Exacerbation of Cystic Fibrosis; Hypokalemia 02/18/19 09:27 Peak Expiratory Flow Rate ONCE Comment: Reason For Exam: Diagnosis: Exacerbation of Cystic Fibrosis; Hypokalemia - Discharge Disposition: DC TO OTHER HOSP Condition: Fair Prescriptions: No Action Omeprazole 20 mg PO DAILY Lipase/Protease/Amylase [Zenpep Dr 20,000 Units Capsule] 2 each PO AC Levothyroxine Sodium 50 Mcg [Synthroid 50 Mcg] 50 mcg PO UD Insulin Aspart [NovoLOG Insulin] 12 unit SQ AC Fluticasone/Salmeterol 500/50* [Advair 500-50 Diskus] 1 inh IH BID Escitalopram Oxalate [Lexapro] 20 mg PO DAILY Azithromycin 500 mg PO UD Atorvastatin Calcium 10 mg PO HS Albuterol Sulfate [Albuterol Sulfate Hfa] 8.5 gm IH Q4HPRN PRN PRN Reason: Cystic fibrosis Albuterol 2.5 mg/3 ml Neb [Proventil 2.5 mg/3 ml Neb] 1 vial IH TID Pramipexole Di-HCl [Mirapex] 0.25 mg PO HS Non-Formulary Drug [Non-Formulary Item] 1 each PO UD Hydroxychloroquine Sulfate 300 mg PO DAILY Insulin Glargine,Hum.rec.anlog [Basaglar Kwikpen U-100] 13 unit SQ DAILY Linaclotide [Linzess] 145 mcg PO DAILY Apixaban [Eliquis] 5 mg PO BID Mometasone Furoate [Nasonex] 2 spray NS QAM Follow up with: RHEA LEES [Primary Care Provider] - 1 Week
[2019-02-19 13:07] LABS: Absolute Neutrophil Ct (ANC) 3.98 (1.4-6.9); BASOPHIL % 0.6 % (0.0-0.4); Basophil (Absolute #) 0.03 (0-0.4); Eosinophil % 2.3 % (0.00-5.0); Eosinophil (Absolute #) 0.12 (0-0.5); Hematocrit 34.8 % (35-47); Hemoglobin 10.9 gm/dl (12.0-16.0); Lymphocyte (Absolute #) 0.57 (1.0-4.6); Mean Cell Volume 91.1 fl (78-100); Mean Corpuscular Hemoglobin 28.5 pg (26-32); Mean Corpuscular Hgb Concent. 31.3 g/dl (32-36); Monocyte (Absolute #) 0.46 (0.0-1.3); Monocytes % 8.9 % (0.0-12.0); Neutrophil % 77.2 % (36.0-66.0); Platelet Count 175 K/mm3 (150-450); Red Blood Count 3.82 M/mm3 (4.1-5.4); Red Cell Distribution Width 15.4 % (11.5-14.0); White Blood Count 5.2 K/mm3 (4.0-10.5)
[2019-02-19 13:29] LABS: ALBUMIN 3.2 g/dL (3.5-5.0); ALKALINE PHOSPHATASE 62 U/L (38-126); ANION GAP 8.4 MEQ/L (5-15); BLOOD UREA NITROGEN 4 mg/dL (7-17); CHLORIDE 102 mmol/L (98-107); Calcium 8.6 mg/dL (8.4-10.2); Carbon Dioxide 32 mmol/L (22-30); Creatinine 1 0.48 mg/dL (0.52-1.04); Glucose 289 mg/dL (74-106); SGOT/AST 29 U/L (14-36); SGPT/ALT 22 U/L (0-35); SODIUM 138 mmol/L (137-145); Total Protein 6.6 g/dL (6.3-8.2)
[2019-02-19 13:32] VITALS: BP 156/72
[2019-02-19 14:00] VITALS: PULSE 100; O2SAT 91
[2019-02-20] MEDS ORDERED: Zithromax 250 MG TABLET PO SCH (10:00)
== END 2019-02-19 15:50 ==
LOC: ED 20:58 → MED SURG 02-18 02:58
PROVIDERS: ADMIT Internal Medicine; ATTEND Internal Medicine
DX: E84.9 Cystic fibrosis, unspecified (principal); E08.9 Diabetes mellitus due to underlying condition without complications; E87.6 Hypokalemia; R06.02 Shortness of breath; E78.00 Pure hypercholesterolemia, unspecified; E03.9 Hypothyroidism, unspecified; Z79.01 Long term (current) use of anticoagulants; Z79.899 Other long term (current) drug therapy; Z86.718 Personal history of other venous thrombosis and embolism
CPT/HCPCS: 36000; 36415; 71260; 80048; 80053; 81001; 82805; 82962; 83036; 83605; 83735; 83880; 84484; 85025; 85610; 85730; 87040; 87070; 87631; 93005; 93041; 93268; 94150; 94640; 94760; 96360; 96365; 99285; G0378; J1644; A9270-GY; J2185

== ENCOUNTER 2023-03-22 12:50 | Emergency (ER) | payer BC ==
--- NOTE | 2023-03-22 13:01 | ERPHSYRPT ---
- History of Present Illness Time Seen by Provider: 03/22/23 13:01 Source: patient, family Exam Limitations: no limitations Physician History: This is a 57-year-old white female patient who has a history of cystic fibrosis and DVTs. In addition, patient has a history of iron deficiency anemia. She is waiting for call from [facility] to set a date and time for iron infusion per her report. In the last few days patient has noticed increasing shortness of breath. Patient spoke with her charge operator to recommended that she go to where the charge operator is. However, this is 2 hours away and the patient preferred to come to our emergency department. Patient is on Xarelto to treat and prevent DVTs. Patient has noticed increasing swelling in her bilateral l ower extremities. Right worse than left. She has not had a fever. She denies chest pain. She has no flulike symptoms. Patient has a history of hypothyroidism, insulin-dependent diabetes, gastroesophageal reflux disease, hyperlipidemia anxiety and depression. Timing/Duration: day(s), worse Severity of Dyspnea-Max: mild Severity of Dyspnea-Current: mild (Improved on 1 L of oxygen via nasal cannula) Possible Cause: occasional episodes Modifying Factors: Improves With: activity Associated Symptoms: denies symptoms Allergies/Adverse Reactions: polymyxin B Allergy (Verified 03/22/23 13:09) Penicillins Adverse Reaction (Verified 03/22/23 13:09) piperacillin [From Zosyn] Adverse Reaction (Verified 03/22/23 13:09) sulfamethoxazole [From Bactrim] Adverse Reaction (Verified 03/22/23 13:09) tazobactam [From Zosyn] Adverse Reaction (Verified 03/22/23 13:09) trimethoprim [From Bactrim] Adverse Reaction (Verified 03/22/23 13:09) Home Medications: Albuterol 2.5 mg/3 ml Neb [Proventil 2.5 mg/3 ml Neb] 1 vial IH TID 03/19/18 [History] Albuterol Sulfate [Albuterol Sulfate Hfa] 8.5 gm IH Q4HPRN PRN 03/19/18 [History] Atorvastatin Calcium 10 mg PO HS 03/19/18 [History] Escitalopram Oxalate [Lexapro] 20 mg PO DAILY 03/19/18 [History] Fluticasone/Salmeterol 500/50* [Advair 500-50 Diskus] 1 inh IH BID 03/19/18 [History] Insulin Aspart [NovoLOG Insulin] 14 unit SQ AC 03/19/18 [History] Levothyroxine Sodium 50 Mcg [Synthroid 50 Mcg] 50 mcg PO UD 03/19/18 [His tory] Lipase/Protease/Amylase [Zenpep Dr 20,000 Units Capsule] 6 each PO AC 03/19/18 [History] Omeprazole 20 mg PO DAILY 03/19/18 [History] Insulin Glargine,Hum.rec.anlog [Basaglar Kwikpen U-100] 18 unit SQ DAILY 02/18/19 [History] Linaclotide [Linzess] 290 mcg PO DAILY 02/18/19 [History] Mometasone Furoate [Nasonex] 2 spray NS QAM 02/18/19 [History] Non-Formulary Drug [Non-Formulary Item] 1 each PO UD 02/18/19 [History] Pramipexole Di-HCl [Mirapex] 0.25 mg PO HS 02/18/19 [History] Rivaroxaban 10 mg Tablet [Xarelto 10 mg Tablet] 10 mg PO DAILY 03/22/23 [History] Hx Tetanus, Diphtheria Vaccination/Date Given: Yes Hx Influenza Vaccination/Date Given: Yes Hx Pneumococcal Vaccination/Date Given: Yes Travel Risk - International Travel Have you traveled outside of the country in past 3 weeks: No - Coronavirus Screening Are you exhibiting any of the following symptoms?: Yes Symptoms: Shortness of Breath Close contact with a COVID-19 positive Pt in past 14-21 Days: No - Review of Systems Constitutional: No Symptoms Eyes: No Symptoms Ears, Nose, & Throat: No Symptoms Respiratory: Dyspnea, Dyspnea on Exertion (PRINCE) Cardiac: No Symptoms Abdominal/Gastrointestinal: No Symptoms Genitourinary Symptoms: No Symptoms Musculoskeletal: No Symptoms Skin: No Symptoms Neurological: No Symptoms Psychological: No Symptoms Endocrine: No Symptoms Hematologic/Lymphatic: No Symptoms Immunological/Allergic: No Symptoms All Other Systems: Reviewed and Negative - Past Medical History Pertinent Past Medical History: Yes Neurological History: No Pertinent History ENT History: No Pertinent History Cardiac History: No Pertinent History, High Cholesterol Respiratory History: Other Endocrine Medical History: Diabetes Type II, Hypothyroidism Musculoskeletal History: Arthritis GI Medical History: GERD History: No Pertinent History Psycho-Social History: No Pertinent History Female Reproductive Disorders: No Pertinent History Other Medical History: Cystic Fibrosis since . Cystic Fibrosis related Diabetes for 20 years - Past Surgical History Past Surgical History: Yes Neuro Surgical History: No Pertinent History Cardiac: No Pertinent History Respiratory: No Pertinent History Gastrointestinal: Cholecystectomy Genitourinary: No Pertinent History Musculoskeletal: No Pertinent History Female Surgical History: No Pertinent History Other Surgical History: Polyp removed from large intestine 2014. Polyp removed from sinus 1980s - Social History Smoking Status: Never smoker Exposure to second hand smoke: No Drug Use: none Patient Lives Alone: No - Nursing Vital Signs Nursing Vital Signs: Initial Vital Signs Temperature 97.8 F 03/22/23 12:52 Pulse Rate 94 H 03/22/23 12:52 Blood Pressure 143/60 03/22/23 12:52 O2 Sat by Pulse Oximetry 95 03/22/23 12:52 Pain Scale Pain Intensity 2 - Physical Exam General Appearance: no apparent distress, alert, anxiety Eye Exam: PERRL/EOMI, eyes nml inspection Ears, Nose, Throat Exam: hearing grossly normal, normal ENT inspection, normal pharynx Neck Exam: normal inspection, non-tender, supple, full range of motion Respiratory Exam: normal breath sounds, lungs clear, No chest tenderness, No respiratory distress Cardiovascular/Chest Exam: normal heart sounds, regular rate/rhythm Abdominal/Gastrointestinal Exam: soft, normal bowel sounds, No tenderness Rectal Exam: not done Extremity Exam: non-tender, normal range of motion, pedal edema (Bilateral feet and ankle swelling right side worse than left) Neurologic Exam: alert, oriented x 3, cooperative, 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 nml as tested, normal mood/affect, nml cerebellar function, nml station & gait, sensation nml Skin Exam: normal color, warm, dry Lymphatic Exam: No adenopathy SpO2 Interpretation: normal O2 Delivery: Room Air - Course Nursing assessment & vital signs reviewed: Yes Ordered Tests: Active Orders 24 hr Category Date Time Status EKG-ER Only STAT Care 03/22/23 13:18 Active IV Insertion STAT Care 03/22/23 13:18 Active CHEST 1 VIEW (PORTABLE) Stat Exams 03/22/23 13:18 Completed VENOUS BILATERAL EXTREMITY [US] Stat Exams 03/22/23 13:20 Completed CBC W DIFF Stat Lab 03/22/23 13:40 Completed CMP Stat Lab 03/22/23 13:40 Completed NT PRO BNPII Stat Lab 03/22/23 13:40 Completed TROPONIN Q4H Lab 03/22/23 13:40 Completed TROPONIN Q4H Lab 03/22/23 17:30 Ordered TROPONIN Q4H Lab 03/22/23 21:30 Ordered Medication Summary Discontinued Medications Generic Name Dose Route Start Last Admin Trade Name Nevilleq PRN Reason Stop Dose Admin Potassium Chloride 20 meq 03/22/23 14:37 Potassium Chloride Tab 10 Meq Tab PO 03/22/23 14:38 STAT ONE Lab/Rad Data: Laboratory Result Diagrams 03/22/23 13:40 03/22/23 13:40 Laboratory Results 03/22/23 03/22/23 03/22/23 Range/Units 13:48 13:40 13:40 WBC (4.0-10.5) x10^3/uL RBC (4.1-5.4) x10^6/uL Hgb (12.0-16.0) g/dL Hct (35-47) % MCV (78-100) fL MCH (26-32) pg MCHC (32-36) g/dL RDW (11.5-14.0) % Plt Count (150-450) x10^3/uL MPV (7.5-11.0) fL Gran % (36.0-66.0) % Immature Gran % (Auto) (0.00-0.4) % Nucleat RBC Rel Count (0.00-0.1) % Eos # (Auto) (0-0.5) x10^3/uL Immature Gran # (Auto) (0.00-0.03) x10^3u/L Absolute Lymphs (auto) (1.0-4.6) x10^3/uL Absolute Monos (auto) (0.0-1.3) x10^3/uL Absolute Nucleated RBC (0.00-0.01) x10^3u/L Lymphocytes % (24.0-44.0) % Monocytes % (0.0-12.0) % Eosinophils % (0.00-5.0) % Basophils % (0.0-0.4) % Absolute Granulocytes (1.4-6.9) x10^3/uL Basophils # (0-0.4) x10^3/uL Sodium 136 L (137-145) mmol/L Potassium 3.3 L (3.5-5.1) mmol/L Chloride 100 (98-107) mmol/L Carbon Dioxide 32 H (22-30) mmol/L Anion Gap 7.7 (5-15) MEQ/L BUN 17 (7-17) mg/dL Creatinine 0.52 (0.52-1.04) mg/dL Estimated GFR 107.6 ML/MIN Glucose 223 H (74-106) mg/dL Calcium 8.6 (8.4-10.2) mg/dL Total Bilirubin 1.10 (0.2-1.3) mg/dL AST 35 (14-36) U/L ALT 28 (0-35) U/L Alkaline Phosphatase 71 (38-126) U/L Troponin I < 0.012 (0.000-0.034) ng/mL NT-Pro-B Natriuret Pep 167 (<300) pg/mL Serum Total Protein 5.9 L (6.3-8.2) g/dL Albumin 3.4 L (3.5-5.0) g/dL Influenza Type A Ag NEGATIVE (NEGATIVE) Influenza Type B Ag NEGATIVE (NEGATIVE) RSV (PCR) NEGATIVE (NEGATIVE) SARS-CoV-2 (PCR) NEGATIVE (NEGATIVE) 03/22/23 Range/Units 13:40 WBC 6.1 (4.0-10.5) x10^3/uL RBC 3.12 L (4.1-5.4) x10^6/uL Hgb 7.5 L (12.0-16.0) g/dL Hct 25.1 L (35-47) % MCV 80.4 (78-100) fL MCH 24.0 L (26-32) pg MCHC 29.9 L (32-36) g/dL RDW 17.2 H (11.5-14.0) % Plt Count 252 (150-450) x10^3/uL MPV 9.8 (7.5-11.0) fL Gran % 67.6 H (36.0-66.0) % Immature Gran % (Auto) 0.2 (0.00-0.4) % Nucleat RBC Rel Count 0.0 (0.00-0.1) % Eos # (Auto) 0.32 (0-0.5) x10^3/uL Immature Gran # (Auto) 0.01 (0.00-0.03) x10^3u/L Absolute Lymphs (auto) 1.03 (1.0-4.6) x10^3/uL Absolute Monos (auto) 0.55 (0.0-1.3) x10^3/uL Absolute Nucleated RBC 0.00 (0.00-0.01) x10^3u/L Lymphocytes % 17.0 L (24.0-44.0) % Monocytes % 9.1 (0.0-12.0) % Eosinophils % 5.3 H (0.00-5.0) % Basophils % 0.8 (0.0-0.4) % Absolute Granulocytes 4.11 (1.4-6.9) x10^3/uL Basophils # 0.05 (0-0.4) x10^3/uL Sodium (137-145) mmol/L Potassium (3.5-5.1) mmol/L Chloride (98-107) mmol/L Carbon Dioxide (22-30) mmol/L Anion Gap (5-15) MEQ/L BUN (7-17) mg/dL Creatinine (0.52-1.04) mg/dL Estimated GFR ML/MIN Glucose (74-106) mg/dL Calcium (8.4-10.2) mg/dL Total Bilirubin (0.2-1.3) mg/dL AST (14-36) U/L ALT (0-35) U/L Alkaline Phosphatase (38-126) U/L Troponin I (0.000-0.034) ng/mL NT-Pro-B Natriuret Pep (<300) pg/mL Serum Total Protein (6.3-8.2) g/dL Albumin (3.5-5.0) g/dL Influenza Type A Ag (NEGATIVE) Influenza Type B Ag (NEGATIVE) RSV (PCR) (NEGATIVE) SARS-CoV-2 (PCR) (NEGATIVE) - Progress Progress: improved, re-examined Air Movement: good Progress Note: 03/22/23 13:28 This patient's medical issue is 1 of moderate complexity. The level of complexity in the workup performed is based on review of the patient's past medical history, review of the patient's medication list, review of the patient's drug allergy list, history of present illness and physical findings on examination. The workup in this patient includes placement of an intravenous line, CBC, CMP, BNP, troponin level, twelve-lead EKG, chest x-ray and bilateral lower extremity venous Dopplers. 03/22/23 14:19 Chest x-ray was interpreted by the radiologist. I reviewed the impression. There is no new/acute cardiopulmonary abnormalities. There are findings consistent with cystic fibrosis. Bilateral lower extremity venous Dopplers are negative for DVT Blood Culture(s) Obtained: No Antibiotics given: No Counseled pt/family regarding: lab results, diagnosis, need for follow-up, rad results Medical Desision Making - Independent Historian Additional History obtained from: Spouse - Diagnostic Testing Diagnostic test were ordered, analyzed, and reviewed by me: Yes Radiological Interpretation: Reviewed by me, Teleradiologist Report - Risk of complications Minimal Risk: Minimal risk of morbidity - Departure Departure Disposition: Home Clinical Impression: Chronic anemia, Hypokalemia Condition: Stable Critical Care Time: No Referrals: ZELDA MARROQUIN, [NON-STAFF PHY W/O PRIVILEGES] - Follow up/PCP as directed Additional Instructions: Call your charge operator and [facility] regarding your iron transfusion notify them of your hemoglobin level of 7.5. Obtain outpatient management instructions. Continue your oxygen supplementation via nasal cannula. Drink plenty of fluids. Continue your other medications as prescribed.
[2023-03-22 13:09] VITALS: PULSE 94; TEMP 97.8
[2023-03-22 13:42] LABS: Absolute Neutrophil Ct (ANC) 4.11 x10^3/uL (1.4-6.9); BASOPHIL % 0.8 % (0.0-0.4); Basophil (Absolute #) 0.05 x10^3/uL (0-0.4); Eosinophil % 5.3 % (0.00-5.0); Eosinophil (Absolute #) 0.32 x10^3/uL (0-0.5); Hematocrit 25.1 % (35-47); Hemoglobin 7.5 g/dL (12.0-16.0); IMMATURE GRAN # 0.01 x10^3u/L (0.00-0.03); IMMATURE GRAN % 0.2 % (0.00-0.4); Lymphocyte (Absolute #) 1.03 x10^3/uL (1.0-4.6); Mean Cell Volume 80.4 fL (78-100); Mean Corpuscular Hgb Concent. 29.9 g/dL (32-36); Mean Platelet Volume 9.8 fL (7.5-11.0); Monocyte (Absolute #) 0.55 x10^3/uL (0.0-1.3); Monocytes % 9.1 % (0.0-12.0); Neutrophil % 67.6 % (36.0-66.0); Platelet Count 252 x10^3/uL (150-450); Red Blood Count 3.12 x10^6/uL (4.1-5.4); Red Cell Distribution Width 17.2 % (11.5-14.0); White Blood Count 6.1 x10^3/uL (4.0-10.5)
--- NOTE | 2023-03-22 13:52 | XRAY ---
Indication: Short of breath. History cystic fibrosis. Comparison: June 19, 2018 Portable chest again demonstrates diffuse bilateral interstitial opacities with bronchiectasis favoring clinically reported cystic fibrosis. No focal infiltrate, consolidation, or large effusion. Heart not enlarged again with right Port-A-Cath. Intact. Impression: Again radiographic features favoring clinically reported cystic fibrosis. No new/acute cardiopulmonary abnormalities.
--- NOTE | 2023-03-22 13:54 | XRAY ---
Indication: Bilateral leg swelling. Two-dimensional sonogram and color Doppler imaging major venous vessels left and right leg performed. Comparison: None No thrombus seen in the examined deep venous vessels of the left and right leg including greater saphenous vein. Veins demonstrate normal compressibility. Venous waveforms are normal with and without augmentation. Impression: Left and right legs negative for DVT.
[2023-03-22 14:09] LABS: ALBUMIN 3.4 g/dL (3.5-5.0); ANION GAP 7.7 MEQ/L (5-15); BILIRUBIN,TOTAL 1.1 mg/dL (0.2-1.3); Calcium 8.6 mg/dL (8.4-10.2); Creatinine 1 0.52 mg/dL (0.52-1.04); EST GLOMERULAR FILTRATION RATE 107.6 ML/MIN; Potassium 3.3 mmol/L (3.5-5.1); Total Protein 5.9 g/dL (6.3-8.2)
[2023-03-22 14:11] VITALS: O2SAT 97
[2023-03-22 14:33] LABS: INFLUENZA A NEGATIVE (NEGATIVE); INFLUENZA B NEGATIVE (NEGATIVE); RESPIRATORY SYNCTIAL VIRUS NEGATIVE (NEGATIVE); SARS-CoV-2 Xpert Express NEGATIVE (NEGATIVE)
[2023-03-22] MEDS ORDERED: Klor Con PO ONE (14:37)
[2023-03-22] MEDS ORDERED: Klor Con ONE (14:42)
[2023-03-22 14:56] VITALS: BP 122/72
== END 2023-03-22 14:59 | disposition home or self-care (01) ==
LOC: ED 12:50
DX: D64.9 Anemia, unspecified (principal); E87.6 Hypokalemia; R06.02 Shortness of breath; M79.89 Other specified soft tissue disorders; E11.9 Type 2 diabetes mellitus without complications; E78.5 Hyperlipidemia, unspecified; Z79.01 Long term (current) use of anticoagulants; Z79.4 Long term (current) use of insulin; Z79.899 Other long term (current) drug therapy
CPT/HCPCS: 0241U; 36000; 36415; 71045; 80053; 83880; 84484; 85025; 93005; 93970; 99284; J1642; A9270-GY

== ENCOUNTER 2023-10-30 08:08 | Emergency (ER) | payer BC ==
[2023-10-30 08:30] VITALS: TEMP 97
[2023-10-30] MEDS ORDERED: PROVENTIL 2.5 MG/3 ML NEB IH ONE (08:59)
[2023-10-30 09:01] LABS: Absolute Neutrophil Ct (ANC) 4.97 x10^3/uL (1.56-6.13); Basophil (Absolute #) 0.07 x10^3/uL (0.01-0.08); Eosinophil % 3.8 % (0.7-5.8); Eosinophil (Absolute #) 0.27 x10^3/uL (0.04-0.36); Hematocrit 41.4 % (34.1-44.9); Hemoglobin 13.5 g/dL (11.2-15.7); IMMATURE GRAN # 0.02 x10^3u/L (0.001-0.031); IMMATURE GRAN % 0.3 % (0.001-0.429); Lymphocyte (Absolute #) 1.26 x10^3/uL (1.18-3.74); Lymphocytes % 17.6 % (19.3-51.7); Mean Cell Volume 91.8 fL (79.4-94.8); Mean Corpuscular Hemoglobin 29.9 pg (25.6-32.2); Mean Corpuscular Hgb Concent. 32.6 g/dL (32.2-35.5); Mean Platelet Volume 9.8 fL (9.4-12.3); Monocyte (Absolute #) 0.58 x10^3/uL (0.24-0.86); Monocytes % 8.1 % (4.7-12.5); Neutrophil % 69.2 % (34.0-71.1); Platelet Count 218 x10^3/uL (182-369); Red Blood Count 4.51 x10^6/uL (3.93-5.22); Red Cell Distribution Width 13.2 % (11.7-14.4); White Blood Count 7.2 x10^3/uL (3.98-10.04)
[2023-10-30] MEDS: PROVENTIL 2.5 MG/3 ML NEB IH ONE (09:01)
[2023-10-30 09:16] LABS: ANION GAP 12.7 MEQ/L (5-15); BILIRUBIN,TOTAL 1.1 mg/dL (0.2-1.3); Calcium 9.2 mg/dL (8.4-10.2); Creatinine 1 0.64 mg/dL (0.52-1.04); EST GLOMERULAR FILTRATION RATE 101.7 ML/MIN; Potassium 4.5 mmol/L (3.5-5.1); Total Protein 6.6 g/dL (6.3-8.2)
[2023-10-30] MEDS: TYLENOL EXTRA STRENGTH 500 MG PO STA (11:50)
[2023-10-30] MEDS ORDERED: TYLENOL EXTRA STRENGTH 500 MG ONE (11:50)
[2023-10-30 12:02] VITALS: O2SAT 97
--- NOTE | 2023-10-30 12:18 | ERPHSYRPT ---
- History of Present Illness Time Seen by Provider: 10/30/23 08:45 Historian: patient, family Exam Limitations: no limitations Patient Subjective Stated Complaint: pt co pain to left shoulder and arm since about 0300 this am, no injury Triage Nursing Assessment: pt walked in,resp easy, skin w/d/p, chest clear. no cough, moves all ext well, port to right side of chest Physician History: 58-year-old female with history of cystic fibrosis, diabetes mellitus, hypothyroidism, DVT upper extremities not on anticoagulation, iron deficiency anemia presented in the ER with complaint of left upper chest and shoulder pain with some radiation to the left upper extremity since morning. Patient reports dull aching discomfort, partial relief with moving shoulder and different directions which kind of helps with distraction from pain. Patient denies any palpitations or difficulty breathing. Concerned about having a PE. No history of coronary artery disease. No fever or chills or cough reported. Has taken Tylenol and Xarelto x 1 prior to arrival which she had leftover from previous prescription. Nitro Today/Relief: no nitro taken today Aspirin Treatment Today: no aspirin today Allergies/Adverse Reactions: polymyxin B Allergy (Verified 10/30/23 08:12) Penicillins Adverse Reaction (Verified 10/30/23 08:12) piperacillin [From Zosyn] Adverse Reaction (Verified 10/30/23 08:12) sulfamethoxazole [From Bactrim] Adverse Reaction (Verified 10/30/23 08:12) tazobactam [From Zosyn] Adverse Reaction (Verified 10/30/23 08:12) trimethoprim [From Bactrim] Adverse Reaction (Verified 10/30/23 08:12) Home Medications: Albuterol 2.5 mg/3 ml Neb [Proventil 2.5 mg/3 ml Neb] 1 vial IH TID 03/19/18 [History] Albuterol Sulfate [Albuterol Sulfate Hfa] 8.5 gm IH Q4HPRN PRN 03/19/18 [History] Atorvastatin Calcium 10 mg PO HS 03/19/18 [History] Escitalopram Oxalate [Lexapro] 20 mg PO DAILY 03/19/18 [History] Fluticasone/Salmeterol 500/50* [Advair 500-50 Diskus] 1 inh IH BID 03/19/18 [History] Insulin Aspart [NovoLOG Insulin] 14 unit SQ AC 03/19/18 [History] Levothyroxine Sodium 50 Mcg [Synthroid 50 Mcg] 50 mcg PO UD 03/19/18 [History] Lipase/Protease/Amylase [Zenpep Dr 20,000 Units Capsule] 6 each PO AC 03/19/18 [History] Omeprazole 20 mg PO DAILY 03/19/18 [History] Insulin Glargine,Hum.rec.anlog [Basaglar Kwikpen U-100] 18 unit SQ DAILY 02/18/19 [History] Linaclotide [Linzess] 290 mcg PO DAILY 02/18/19 [History] Mometasone Furoate [Nasonex] 2 spray NS QAM 02/18/19 [History] Non-Formulary Drug [Non-Formulary Item] 1 each PO UD 02/18/19 [History] Pramipexole Di-HCl [Mirapex] 0.25 mg PO HS 02/18/19 [History] Rivaroxaban 10 mg Tablet [Xarelto 10 mg Tablet] 10 mg PO DAILY 03/22/23 [History] Hx Tetanus, Diphtheria Vaccination/Date Given: Yes Hx Influenza Vaccination/Date Given: No Hx Pneumococcal Vaccination/Date Given: Yes Immunizations Up to Date: Yes Travel Risk - International Travel Have you traveled outside of the country in past 3 weeks: No - Emerging Infectious Disease Are you exhibiting symptoms associated with any current EIDs: No - Review of Systems Constitutional: No Symptoms Ears, Nose, & Throat: No Symptoms Respiratory: No Symptoms Cardiac: Chest Pain Abdominal/Gastrointestinal: No Symptoms Genitourinary Symptoms: No Symptoms Musculoskeletal: Joint Pain Skin: No Symptoms Neurological: No Symptoms Endocrine: No Symptoms Hematologic/Lymphatic: No Symptoms - Past Medical History Pertinent Past Medical History: Yes Neurological History: No Pertinent History ENT History: No Pertinent History Cardiac History: No Pertinent History, High Cholesterol Respiratory History: Other Endocrine Medical History: Diabetes Type II, Hypothyroidism Musculoskeletal History: Arthritis GI Medical History: GERD History: No Pertinent History Psycho-Social History: No Pertinent History Female Reproductive Disorders: No Pertinent History Other Medical History: Cystic Fibrosis since . Cystic Fibrosis related Diabetes for 20 years - Past Surgical History Past Surgical History: Yes Neuro Surgical History: No Pertinent History Cardiac: No Pertinent History Respiratory: No Pertinent History Gastrointestinal: Cholecystectomy Genitourinary: No Pertinent History Musculoskeletal: No Pertinent History Female Surgical History: No Pertinent History Other Surgical History: Polyp removed from large intestine 2014. Polyp removed from sinus 1980s - Social History Smoking Status: Never smoker Exposure to second hand smoke: No Drug Use: none Patient Lives Alone: No - Social Determinants of Health Will the patient participate in the screening: Declined to provide - Nursing Vital Signs Nursing Vital Signs: Initial Vital Signs Temperature 97.0 F 10/30/23 08:29 Pulse Rate 77 10/30/23 08:29 Respiratory Rate 18 10/30/23 08:29 Blood Pressure 177/86 10/30/23 08:29 O2 Sat by Pulse Oximetry 97 10/30/23 08:29 Pain Scale Pain Intensity 4 - Physical Exam General Appearance: no apparent distress, alert, anxiety Eye Exam: PERRL/EOMI Ears, Nose, Throat Exam: normal ENT inspection Neck Exam: normal inspection, non-tender, supple, full range of motion Respiratory Exam: normal breath sounds, lungs clear, No chest tenderness Cardiovascular Exam: regular rate/rhythm, normal heart sounds Gastrointestinal/Abdomen Exam: soft, normal bowel sounds, No tenderness Back Exam: normal inspection, normal range of motion Extremity Exam: normal inspection, normal range of motion Neurologic Exam: alert, oriented x 3, cooperative, control room tender II-XII nml as tested Skin Exam: normal color SpO2 Interpretation: normal SpO2: 97 O2 Delivery: Room Air - Course EKG Interpreted by Me: RATE (75), Sinus Rhythm, NORMAL AXIS, NORMAL INTERVALS, NORMAL QRS Ordered Tests: Active Orders 24 hr Category Date Time Status IV Insertion STAT Care 10/30/23 10:48 Completed CHEST 1 VIEW (PORTABLE) Stat Exams 10/30/23 08:46 Taken CHEST WITH CONTRAST [CT] Stat Exams 10/30/23 09:29 Completed CBC W DIFF Stat Lab 10/30/23 08:25 Completed CK-Creatinine Phosphokinase Stat Lab 10/30/23 08:25 Completed CMP Stat Lab 10/30/23 08:25 Completed D-DIMER QUANTITATIVE Stat Lab 10/30/23 08:25 Completed NT PRO BNPII Stat Lab 10/30/23 08:25 Completed TROPONIN Q4H Lab 10/30/23 08:25 Completed TROPONIN Q4H Lab 10/30/23 12:00 Completed Respiratory Therapy Assessment DAILY RT 10/30/23 09:04 Completed Medication Summary Discontinued Medications Generic Name Dose Route Start Last Admin Trade Name Twyla PRN Reason Stop Dose Admin Acetaminophen 1,000 mg 10/30/23 11:49 10/30/23 11:50 Acetaminophen 500 Mg Tablet PO 10/30/23 11:50 1,000 mg STAT STA Administration Acetaminophen Confirm 10/30/23 11:50 Acetaminophen 500 Mg Tablet Administered 10/30/23 11:51 Dose 1,000 mg .ROUTE .STK-MED ONE Albuterol Sulfate 2.5 mg 10/30/23 08:54 10/30/23 09:01 Albuterol Sulfate 2.5 Mg/3 Ml Neb IH 10/30/23 08:55 2.5 mg STAT ONE Administration Albuterol Sulfate Confirm 10/30/23 08:59 Albuterol Sulfate 2.5 Mg/3 Ml Neb Administered 10/30/23 09:00 Dose 2.5 mg IH .STK-MED ONE Heparin Sodium (Beef Lung) 500 units 10/30/23 12:45 10/30/23 12:52 Heparin Lock Flush Pf 500 Units/5 Ml Syringe PORT FLUSH 10/30/23 12:46 500 units STAT ONE Administration Heparin Sodium (Beef Lung) Confirm 10/30/23 12:46 Heparin Lock Flush Pf 500 Units/5 Ml Syringe Administered 10/30/23 12:47 Dose 500 units .ROUTE .STK-MED ONE Lab/Rad Data: Laboratory Result Diagrams 10/30/23 08:25 10/30/23 08:25 Laboratory Results 10/30/23 10/30/23 10/30/23 Range/Units 12:00 08:25 08:25 WBC (3.98-10.04) x10^3/uL RBC (3.93-5.22) x10^6/uL Hgb (11.2-15.7) g/dL Hct (34.1-44.9) % MCV (79.4-94.8) fL MCH (25.6-32.2) pg MCHC (32.2-35.5) g/dL RDW (11.7-14.4) % Plt Count (182-369) x10^3/uL MPV (9.4-12.3) fL Gran % (34.0-71.1) % Immature Gran % (Auto) (0.001-0.429) % Nucleat RBC Rel Count (0.00-0.2) % Eos # (Auto) (0.04-0.36) x10^3/uL Immature Gran # (Auto) (0.001-0.031) x10^3u/L Absolute Lymphs (auto) (1.18-3.74) x10^3/uL Absolute Monos (auto) (0.24-0.86) x10^3/uL Absolute Nucleated RBC (0.00-0.012) x10^3u/L Lymphocytes % (19.3-51.7) % Monocytes % (4.7-12.5) % Eosinophils % (0.7-5.8) % Basophils % (0.1-1.2) % Absolute Granulocytes (1.56-6.13) x10^3/uL Basophils # (0.01-0.08) x10^3/uL D-Dimer (0.0-0.50) mg/L Sodium (135-145) mmol/L Potassium (3.5-5.1) mmol/L Chloride (98-107) mmol/L Carbon Dioxide (22-30) mmol/L Anion Gap (5-15) MEQ/L BUN (7-17) mg/dL Creatinine (0.52-1.04) mg/dL Estimated GFR ML/MIN Glucose (74-106) mg/dL Calcium (8.4-10.2) mg/dL Total Bilirubin (0.2-1.3) mg/dL AST (14-36) U/L ALT (0-35) U/L Alkaline Phosphatase (38-126) U/L Creatine Kinase (30-135) U/L Troponin I < 0.012 < 0.012 (0.000-0.033) ng/mL NT-Pro-B Natriuret Pep 31.0 (<300) pg/mL Serum Total Protein (6.3-8.2) g/dL Albumin (3.5-5.0) g/dL 10/30/23 10/30/23 10/30/23 Range/Units 08:25 08:25 08:25 WBC 7.2 (3.98-10.04) x10^3/uL RBC 4.51 (3.93-5.22) x10^6/uL Hgb 13.5 (11.2-15.7) g/dL Hct 41.4 (34.1-44.9) % MCV 91.8 (79.4-94.8) fL MCH 29.9 (25.6-32.2) pg MCHC 32.6 (32.2-35.5) g/dL RDW 13.2 (11.7-14.4) % Plt Count 218 (182-369) x10^3/uL MPV 9.8 (9.4-12.3) fL Gran % 69.2 (34.0-71.1) % Immature Gran % (Auto) 0.3 (0.001-0.429) % Nucleat RBC Rel Count 0.0 (0.00-0.2) % Eos # (Auto) 0.27 (0.04-0.36) x10^3/uL Immature Gran # (Auto) 0.02 (0.001-0.031) x10^3u/L Absolute Lymphs (auto) 1.26 (1.18-3.74) x10^3/uL Absolute Monos (auto) 0.58 (0.24-0.86) x10^3/uL Absolute Nucleated RBC 0.00 (0.00-0.012) x10^3u/L Lymphocytes % 17.6 L (19.3-51.7) % Monocytes % 8.1 (4.7-12.5) % Eosinophils % 3.8 (0.7-5.8) % Basophils % 1.0 (0.1-1.2) % Absolute Granulocytes 4.97 (1.56-6.13) x10^3/uL Basophils # 0.07 (0.01-0.08) x10^3/uL D-Dimer 1.01 H* (0.0-0.50) mg/L Sodium 134 L (135-145) mmol/L Potassium 4.5 (3.5-5.1) mmol/L Chloride 98 (98-107) mmol/L Carbon Dioxide 28 (22-30) mmol/L Anion Gap 12.7 (5-15) MEQ/L BUN 24 H (7-17) mg/dL Creatinine 0.64 (0.52-1.04) mg/dL Estimated GFR 101.7 ML/MIN Glucose 237 H (74-106) mg/dL Calcium 9.2 (8.4-10.2) mg/dL Total Bilirubin 1.10 (0.2-1.3) mg/dL AST 32 (14-36) U/L ALT 34 (0-35) U/L Alkaline Phosphatase 85 (38-126) U/L Creatine Kinase 85 (30-135) U/L Troponin I (0.000-0.033) ng/mL NT-Pro-B Natriuret Pep (<300) pg/mL Serum Total Protein 6.6 (6.3-8.2) g/dL Albumin 4.0 (3.5-5.0) g/dL - Progress Progress: improved, re-examined Air Movement: good Progress Note: 10/30/23 12:49 58-year-old with multiple medical problems including cystic fibrosis, diabetes mellitus, hypothyroidism is evaluated for left upper chest/shoulder area pain with some radiation to the left upper extremity. The EKG is normal sinus rhythm with no ST elevation. Patient has taken Tylenol prior to arrival and did not want anything else. Later on she wanted another dose of Tylenol which was given. Patient remained fairly asymptomatic. Patient has a history of DVT. Troponins are negative, normal white count, fairly unremarkable chemistries except for some elevation in glucose which patient is diabetic. Chest x-ray is negative for any acute cardiopulmonary findings reviewed by me, official report is pending. D-dimers are elevated and obtained CTA chest which is negative for pulmonary embolism, dissection, pneumonia or any other acute finding. Her pain gets better with movements of shoulder, could have some element of musculoskeletal although does not have any chest or shoulder tenderness. With her age and multiple other comorbidities I recommended outpatient follow-up. She is a low heart score, do not think patient needs to be admitted and can follow-up outpatient. Discussed signs symptoms of worsening needing return to ER which she seems understanding. She is counseled about use of Xarelto without consulting her physician and she will talk to [facility] patient's pulmonology at [facility]. Blood Culture(s) Obtained: No Antibiotics given: No Counseled pt/family regarding: lab results, diagnosis, need for follow-up, rad results Medical Desision Making - Diagnostic Testing Diagnostic test were ordered, analyzed, and reviewed by me: Yes Radiological Interpretation: Interpreted by me, Reviewed by me, Teleradiologist Report - Departure Departure Disposition: Home Clinical Impression: Atypical chest pain Condition: Stable Critical Care Time: No Referrals: GIANNI ESPITIA MD [Primary Care Provider] - Follow up with PCP 1 day JOHN BERGER [CONSULTING PHYSICIAN] - Follow up/PCP as directed (Call for appointment for reevaluation) Instructions: Angina (DC), Chest Pain (DC) Additional Instructions: Take Tylenol as needed. Follow-up with your primary care and cardiology for reevaluation. Return to ER for intractable pain, difficulty breathing, difficulty movements of shoulder etc.
--- NOTE | 2023-10-30 12:41 | XRAY ---
CLINICAL HISTORY: arm pain/positive d-dimer COMPARISON: 02/17/2019 CT. TECHNIQUE: Contiguous 3.[address] angiographic images of the chest were acquired with the administration of intravenous contrast. Coronal and sagittal reconstructions were obtained. 80 cc Isovue 370 was administered for post-contrast images. One of these 3D techniques was utilized: Maximum Intensity Pixel (MIP), 3D Reconstructed Images, Volume Rendered Images, Surface Shaded Rendering. One of the following dose reduction techniques was utilized for this exam: Automated exposure control, adjustment of the mA and/or kV according to patient size, and use of iterative reconstruction. DLP: 459.91 mGy-cm. FINDINGS: Aorta: The thoracic aorta is normal in caliber. No evidence of aneurysm, dissection, or significant atherosclerotic changes. The aortic arch and descending thoracic aorta are unremarkable. Pulmonary Arteries: No definite evidence of a filling defect seen in the main pulmonary trunk and either branch to suggest pulmonary thromboembolism. Pulmonary arteries appear unremarkable. Superior Vena Cava (SVC) and Inferior Vena Cava (IVC): Normal opacification and caliber. No evidence of thrombus or obstruction. Coronary Arteries: Coronary arteries are well-opacified. No significant stenosis or atherosclerotic changes. Mediastinum: No mediastinal mass or lymphadenopathy. Normal appearance of the thymus. Heart: Normal size and morphology of the heart. No pericardial effusion. Lungs: Lungs show bilateral upper lobes cystic bronchiectasis with reticular changes. Bilateral middle lobe and lingula traction bronchiectasis noted. Resolution of the lower lobe micronodular changes. Fibroatelectatic changes with scarring were seen in both upper lobes. No pleural effusion or thickening. Bones: No fractures or lytic/sclerotic lesions of the visualized bony structures. Normal alignment and bone density. Soft Tissues: Normal appearance of the visualized soft tissues. No abnormal masses or fluid collections. IMPRESSION: 1. No acute pulmonary thromboembolism was seen. 2. Bilateral cystic and traction bronchiectasis have not changed from the last scan 3. Fibroatelectatic changes with scarring were seen in both upper lobes. 4. The previous lower lobe's micronodular infiltrates show marked resolution. Electronically Signed by: Alissa Tidwell MD. (10/30/2023 12:37:25 EDT)
[2023-10-30 12:55] VITALS: BP 146/79; PULSE 72; RESP 22
--- NOTE | 2023-10-30 20:49 | XRAY ---
Indication: Chest pain. History of cystic fibrosis. Comparison: March 22, 2023 Portable chest unchanged again demonstrating diffuse bilateral interstitial opacities with bronchiectasis favoring clinically reported cystic fibrosis. No focal infiltrate, consolidation, or large effusion. Heart not enlarged again with right Port-A-Cath. Bony thorax intact. Impression: Continuing nonacute with chronic features.
== END 2023-10-30 12:58 | disposition home or self-care (01) ==
LOC: ED 08:08
DX: R07.89 Other chest pain (principal); M25.512 Pain in left shoulder; E78.5 Hyperlipidemia, unspecified; E84.9 Cystic fibrosis, unspecified; E08.9 Diabetes mellitus due to underlying condition without complications; Z79.4 Long term (current) use of insulin; Z79.899 Other long term (current) drug therapy
CPT/HCPCS: 36000; 36415; 71045; 71260; 80053; 82550; 83880; 84484; 85025; 85379; 94640; 99284; J1642; J7609; A9270-GY

== ENCOUNTER 2023-11-04 12:17 | Emergency (ER) | payer BC ==
[2023-11-04 12:43] VITALS: TEMP 97
[2023-11-04] MEDS ORDERED: NORCO 5/325 MG ONE (12:45)
[2023-11-04] MEDS: NORCO 5/325 MG PO ONE (12:47)
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
[2023-11-04 15:30] LABS: Absolute Neutrophil Ct (ANC) 7.54 x10^3/uL (1.56-6.13); BASOPHIL % 0.8 % (0.1-1.2); Basophil (Absolute #) 0.08 x10^3/uL (0.01-0.08); Eosinophil % 1.2 % (0.7-5.8); Eosinophil (Absolute #) 0.12 x10^3/uL (0.04-0.36); Hematocrit 40.9 % (34.1-44.9); Hemoglobin 13.5 g/dL (11.2-15.7); IMMATURE GRAN # 0.03 x10^3u/L (0.001-0.031); IMMATURE GRAN % 0.3 % (0.001-0.429); Lymphocytes % 12.3 % (19.3-51.7); Mean Cell Volume 91.1 fL (79.4-94.8); Mean Corpuscular Hemoglobin 30.1 pg (25.6-32.2); Mean Platelet Volume 9.7 fL (9.4-12.3); Monocyte (Absolute #) 0.79 x10^3/uL (0.24-0.86); Monocytes % 8.1 % (4.7-12.5); Neutrophil % 77.3 % (34.0-71.1); Platelet Count 240 x10^3/uL (182-369); Red Blood Count 4.49 x10^6/uL (3.93-5.22); Red Cell Distribution Width 13.2 % (11.7-14.4); White Blood Count 9.8 x10^3/uL (3.98-10.04)
[2023-11-04 15:32] LABS: Amphetamine,Urine NEGATIVE (NEGATIVE); Barbiturate,Urine NEGATIVE (NEGATIVE); Benzodiazepine,Urine NEGATIVE (NEGATIVE); Cocaine,Urine NEGATIVE (NEGATIVE); Methadone,Urine NEGATIVE (NEGATIVE); Opiate,Urine POSITIVE (NEGATIVE); PCP,Urine NEGATIVE (NEGATIVE); THC,Urine NEGATIVE (NEGATIVE)
[2023-11-04 15:33] LABS: Appearance Cloudy (Clear); Bilirubin Negative (Negative); Blood Negative (Negative); Epithelial Cells Rare /HPF (None Seen); Glucose, Urine >=1000 mg/dL (Negative); Ketones Trace (Negative); Leukocyte Esterase Negative (Negative); Nitrite Negative (Negative); Ph 5.5 (4.6-8.0); Protein,Urine Dip 30 (Negative); Specific Gravity >=1.030 (1.005-1.030)
[2023-11-04 15:34] LABS: Bacteria Moderate /HPF (None Seen)
[2023-11-04 15:35] LABS: ADD URINE CULTURE? YES (NO)
[2023-11-04 15:44] LABS: ACETAMINOPHEN < 10 ug/ml (10-30); ALBUMIN 4.2 g/dL (3.5-5.0); ALKALINE PHOSPHATASE 76 U/L (38-126); BLOOD UREA NITROGEN 23 mg/dL (7-17); CHLORIDE 99 mmol/L (98-107); Calcium 9.4 mg/dL (8.4-10.2); Carbon Dioxide 30 mmol/L (22-30); Creatinine 1 0.86 mg/dL (0.52-1.04); EST GLOMERULAR FILTRATION RATE 77.8 ML/MIN; ETHYL ALCOHOL < 10 mg/dL (0-10); Glucose 272 mg/dL (74-106); Potassium 3.8 mmol/L (3.5-5.1); SALICYLATE 1.3 mg/dL (2-20); SGOT/AST 37 U/L (14-36); SGPT/ALT 30 U/L (0-35); SODIUM 138 mmol/L (135-145)
[2023-11-04 16:13] LABS: INFLUENZA A NEGATIVE (NEGATIVE); INFLUENZA B NEGATIVE (NEGATIVE); RESPIRATORY SYNCTIAL VIRUS NEGATIVE (NEGATIVE); SARS-CoV-2 Xpert Express NEGATIVE (NEGATIVE)
[2023-11-04] MEDS ORDERED: HUMALOG ONE (18:20)
[2023-11-04] MEDS: HUMALOG SQ ONE (18:22)
[2023-11-04] MEDS ORDERED: DUONEB 0.5-3 MG/3 ml Neb IH ONE (20:03)
[2023-11-04] MEDS: DUONEB 0.5-3 MG/3 ml Neb IH ONE (20:04)
[2023-11-05 00:05] VITALS: BP 153/69; PULSE 93; RESP 18; O2SAT 97
== END 2023-11-05 00:10 ==
LOC: ED 12:17
DX: Z04.1 Encounter for examination and observation following transport accident (principal); S29.011A Strain of muscle and tendon of front wall of thorax, initial encounter; S16.1XXA Strain of muscle, fascia and tendon at neck level, initial encounter; V43.52XA Car driver injured in collision with other type car in traffic accident, initial encounter; R45.851 Suicidal ideations; R51.9 Headache, unspecified; E84.9 Cystic fibrosis, unspecified; E08.9 Diabetes mellitus due to underlying condition without complications; E78.5 Hyperlipidemia, unspecified; Z79.4 Long term (current) use of insulin; Z79.899 Other long term (current) drug therapy
CPT/HCPCS: 0241U; 36415; 70450; 71101; 72125; 80053; 80143; 80179; 80307; 81001; 82077; 85025; 87086; 93005; 94640; 96372; 99285; J1817; A9270-GY